=== PATIENT | male | born 1945 | race Caucasian/White ===

== ENCOUNTER 2016-08-31 11:58 | Inpatient (IN) | payer MEDICARE ==
--- NOTE | ~2016-08-31 | HP ---
History And Physical [place] [id number] [facility] [place]. [address] NAME: TRAM BLACKMON : 41 STATUS : ADM Kris PAT#: [id number] AGE: 70 ADM/REG DATE : 08/31/16 MR#: [id number] REPORT SERV DATE: 08/31/16 DICTATED BY: NADIA BARLOW DATE: 08/31/16 REPORT STATUS : Draft TRANSCRIBED BY: MODL DATE: 08/31/16 DATE OF ADMISSION: 08/31/2016 CHIEF COMPLAINT: Cough. HISTORY OF PRESENT ILLNESS: A pleasant hard of hearing white gentleman with no known history of CAD, who reports he may have had an episode of atrial fibrillation approximately three years ago, but seemingly not on any medication for same. The patient states that he went to his PCP today for a cough, he was found to be in atrial fibrillation. The patient states "my heart was running wild." The patient states that he felt fine. He encouraged his PCP to let him go home, but she was insistent that he come to the emergency room for further evaluation and treatment. The patient reports a "cold and cough" for a week. Denies fever or chills. The patient denies any chest pain, pressure, or tightness. No shortness of breath, nausea, diaphoresis, dizziness, or belching. The patient is unaware of any palpitations. States "I feel good." PAST MEDICAL HISTORY: 1. PAF with current atrial fibrillation with RVR, now rate controlled. 2. Hypertension, poorly managed. 3. Unknown cholesterol. 4. Denies diabetes. 5. Ongoing tobacco abuse. PAST SURGICAL HISTORY: 1. Lumbar surgery. 2. "Ulcer surgery.". 3. Tonsillectomy. SOCIAL HISTORY: He is single with no children. Previously employed at [employer], now [employer], does not have an exercise routine. Smokes one pack per day for 60+ years. Denies alcohol or illicits. FAMILY HISTORY: Mother of a heart attack at 72. Father of cirrhosis of the liver, nondrinker. Three brothers of heart attacks in their 70s. REVIEW OF SYSTEMS: A 14-point review of systems was performed, significant for HPI including does not check blood pressure at home. The patient reports possible previous atrial fibrillation event in 2013. Otherwise, complete review of systems obtained and negative. ALLERGIES: NO KNOWN DRUG ALLERGIES. HOME MEDICATIONS: Aspirin 81 mg daily, Catapres p.r.n., and Prinivil 20 mg daily. PHYSICAL EXAMINATION: BLOOD PRESSURE: Bilateral blood pressures on arrival, right 188/116, left 183/109; PULSE: 81 History And Physical [place] [address] [facility] [place]. [address] NAME: TRAM BLACKMON : 43 STATUS : ADM Kris PAT#: [id number] AGE: 70 ADM/REG DATE : 08/31/16 MR#: [id number] REPORT SERV DATE: 08/31/16 DICTATED BY: NADIA BARLOW DATE: 08/31/16 REPORT STATUS : Draft TRANSCRIBED BY: MODRosibel DATE: 08/31/16 and irregularly irregular, RESPIRATORY RATE: 16, TEMPERATURE: 98.4, O2 saturation 94% on room air. HEIGHT: 6 feet 6 inches. WEIGHT: 195 pounds. BMI of 22.5. GENERAL: Cooperative, in no apparent distress. Hard of hearing. HEENT: Pupils 2 mm, sclera nonicteric. Nares patent. Moist mucous membranes. No xanthelasma. NECK: Trachea midline, no thyromegaly. No JVD. No bruits. LYMPH: No cervical lymphadenopathy. No supraclavicular lymphadenopathy. RESPIRATORY: Unlabored respirations. Breath sounds clear bilaterally to posterior auscultation. No wheezes or rhonchi. CARDIOVASCULAR: Irregularly irregular rate with a variable S1, S2 and trace ankle edema. EXTREMITIES: Pulses 2+ bilaterally. ABDOMEN: Soft, nontender, nondistended, normal bowel sounds auscultated throughout. No organomegaly. SKIN: Warm, dry extremities. No pallor, or cyanosis. PSYCHIATRIC: Appropriate affect. Alert, oriented x3. LABORATORY DATA: Troponin less than 0.02, second pending. Potassium 4.1, BUN 15, creatinine 0.98, glucose 117, and magnesium 2.1. WBC 6.6, hemoglobin 15.2, hematocrit 44.6, and platelet count 154,000. EKG: Atrial fibrillation with controlled ventricular response (previously RVR). ASSESSMENT AND PLAN: 1. Atrial fibrillation with rapid ventricular response, now rate controlled, on Cardizem drip. N.p.o. for ERI cardioversion on 09/01/2016 at 0830 hours. The patient will be discharged home if successful. 2. NOAC. Eliquis 5 mg twice daily. Follow up with Cardiology. 3. Hypertension. Monitor blood pressure. P.r.n. antihypertensive as needed. Consider increasing CESAR if blood pressure remains poorly managed versus CCB or addition of beta- jose martin. 4. Rhonchi on initial exam, now clear. Check a BMP. The patient denies a febrile state. White count is within normal limits. 5. Trace ankle edema. We will provide diuretics if warranted. 6. Ongoing tobacco abuse. Counseled regarding cessation. Although, the patient does not seem motivated to do so. LETICIA/ULISES ART Pacheco, WEIGHT LOSS PHYSICIAN-BC / [id number] CC: ART Pacheco, WEIGHT LOSS PHYSICIAN-BC Paola Parks D.O.
--- NOTE | ~2016-08-31 | OP ---
Record Of Operation [facility] [address] [place]. [address] NAME: TRAM BLACKMON : 41 STATUS : ADM Kris PAT#: [id number] AGE: 70 ADM/REG DATE : 08/31/16 MR#: [id number] REPORT SERV DATE: 09/01/16 DICTATED BY: DATE: REPORT STATUS : Draft TRANSCRIBED BY: MODL DATE: 09/01/16 DATE OF PROCEDURE: 09/01/2016 CHIEF COMPLAINT/REASON FOR STUDY: Atrial fibrillation. Written informed consent obtained. Please see the chart for documentation. PROCEDURE: With the assistance of my Anesthesia colleagues, anesthesia was administered with IV propofol to achieve adequate conscious sedation. The transesophageal probe was readily inserted without complication. Salient 2D echocardiographic windows were obtained including color and Doppler assessment. 1. The left ventricular systolic function appeared normal with a visually estimated ejection fraction greater than 55%. The left ventricle appeared moderately hypertrophied. 2. The right ventricle appeared normal in size and systolic function. 3. The left atrium was dilated. There was no evidence of left atrial thrombus. 4. The right atrium appeared normal in size. 5. The left atrial appendage had no thrombus present at the time of ERI. Left atrial appendage Doppler velocities range between 22-28 cm/sec. 6. The mitral valve was normal with preserved leaflet motion. There was no evidence of mitral valve stenosis. There was mild mitral regurgitation seen with color Doppler assessment. 7. The tricuspid valve was normal with preserved leaflet motion. No tricuspid stenosis. There was trivial tricuspid regurgitation seen with color Doppler assessment. 8. Aortic valve was normal and trileaflet. There was no aortic stenosis or regurgitation seen with color Doppler assessment. 9. The pulmonary valve was well visualized. There was trivial pulmonary valvular regurgitation seen with color Doppler assessment. 10.The aorta appeared normal in caliber, however, there was moderate evidence of atherosclerotic plaque visualized in the thoracic aorta. 11.The pericardium appeared normal without pericardial effusion. 12.The interatrial septum appeared normal without evidence of patent foramen ovale or atrial septal defect. Following verification of no thrombus present, DC cardioversion was attempted in a synchronized manner, 200 joules were delivered, the patient reverted to sinus rhythm briefly and then return to atrial fibrillation with rapid ventricular response. Energy was increased to 300 joules and the procedure repeated without return to sinus rhythm. The energy was subsequently increased to 360 joules and DC cardioversion was performed. The patient briefly went into sinus rhythm and then returned to atrial fibrillation with RVR. IMPRESSION: 1. Moderate left ventricular hypertrophy. 2. Failure to maintain sinus rhythm post cardioversion. Record Of Operation [place] [address] [place]. [address] NAME: TRAM BLACKMON : 43 STATUS : ADM Kris PAT#: [id number] AGE: 70 ADM/REG DATE : 08/31/16 MR#: [id number] REPORT SERV DATE: 09/01/16 DICTATED BY: DATE: REPORT STATUS : Draft TRANSCRIBED BY: MODL DATE: 09/01/16 [facility]/MODL Elin Burgess M.D. / [id number] CC: Chary Arteaga, MSN, SPEECH/LANGUAGE THERAPIST-BC Paola Parks D.O.
[2016-08-31 10:50] LABS: BASOPHILS 0.5 %; BASOPHILS ABSOLUTE 0.03 10/3/uL (0.0-0.16); EOSINOPHILS 4.1 %; EOSINOPHILS ABSOLUTE 0.27 10/3/uL (0.0-0.53); ER CBC TAT 0 Hrs 05 Mins; HEMATOCRIT 44.6 % (40.0-51.0); HEMOGLOBIN 15.2 g/dL (13.6-17.8); IMMATURE GRANULOCYTES 0.3 %; IMMATURE GRANULOCYTES ABSOLUTE 0.02 10/3/uL (0.0-0.11); LYMPHOCYTES 22.1 %; LYMPHOCYTES ABSOLUTE 1.45 10/3/uL (0.67-4.30); MEAN CORPUS HGB CONC 34.1 g/dL (32.0-36.0); MEAN CORPUSCULAR HEMOGLOB 30.8 pg (26.0-34.0); MEAN CORPUSCULAR VOLUME 90.5 fL (80-100); MEAN PLATELET VOLUME 9.8 fL (9.2-13.0); MONOCYTES 7.8 %; MONOCYTES ABSOLUTE 0.51 10/3/uL (0.21-1.20); NEUTROPHILS 65.2 %; NEUTROPHILS ABSOLUTE 4.28 10/3/uL (2.02-8.40); PLATELET COUNT 154 10/3/uL (150-400); RBC DISTRIBUTION WIDTH 13.8 % (12.0-16.0); RED CELL COUNT 4.93 10/6/uL (4.7-6.1); WHITE BLOOD CELLS 6.6 10/3/uL (4.5-10.5)
[2016-08-31 10:52] LABS: MANUAL DIFF NO %
[2016-08-31 10:57] LABS: INTERNATIONAL NORMAL RATI 1.2 UNITS (-); PARTIAL THROMBO TIME 32.9 SEC (22.5-37.2); PROTIME (NOT ORD) 15.2 SEC (12.0-14.5)
[2016-08-31 11:05] LABS: BUN (BLOOD UREA NITROGEN) 15 MG/DL (6-23); CALCIUM, SERUM 8.8 MG/DL (8.5-10.4); CHEST PAIN PROFILE TAT 0 Hrs 20 Mins; CHLORIDE, SERUM 108 MMOL/L (96-112); CO2 (CARBON DIOXIDE) 30 MMOL/L (24-34); CREATININE 0.98 MG/DL (0.70-1.30); GFR AFRICAN AMERICAN 89 ML/MIN (>=60); GFR NON AFRICAN AMERICAN 77 ML/MIN (>=60); GLUCOSE, SERUM 117 MG/DL (60-99); POTASSIUM, SERUM 4.1 MMOL/L (3.5-5.3); SODIUM, SERUM 140 MMOL/L (135-148); TROPONIN I <0.02 NG/ML (<0.05)
[~2016-08-31 11:58] MED LIST: CAT2 PO; HALF81 PO; PRIN20 PO
[2016-08-31 17:01] LABS: ALBUMIN 3.9 G/DL (3.5-5.0); ALKALINE PHOSPHATASE 117 U/L (45-117); DIRECT BILIRUBIN 0.2 MG/DL (0.0-0.4); FREE T4 1.12 NG/DL (0.76-1.46); INDIRECT BILIRUBIN(NOT ORDER) 0.7 MG/DL (0.1-0.9); SGOT(AST) 21 U/L (5-40); SGPT(ALT) 26 U/L (5-65); TOTAL BILIRUBIN 0.9 MG/DL (0-1.2); TOTAL PROTEIN 7.4 G/DL (6.0-8.5)
[2016-08-31 17:40] LABS: ALBUMIN 3.7 G/DL (3.5-5.0); DIRECT BILIRUBIN 0.2 MG/DL (0.0-0.4); FREE T4 1.13 NG/DL (0.76-1.46); INDIRECT BILIRUBIN(NOT ORDER) 0.9 MG/DL (0.1-0.9); TOTAL BILIRUBIN 1.1 MG/DL (0-1.2); TOTAL PROTEIN 6.9 G/DL (6.0-8.5); TROPONIN I 0.02 NG/ML (<0.05)
[2016-08-31 17:41] LABS: ULTRASENSITIVE TSH 0.865 MCIU/ML (0.358-3.740)
[2016-09-01 04:07] LABS: BASOPHILS 0.5 %; BASOPHILS ABSOLUTE 0.03 10/3/uL (0.0-0.16); EOSINOPHILS 4.7 %; EOSINOPHILS ABSOLUTE 0.29 10/3/uL (0.0-0.53); HEMATOCRIT 43.8 % (40.0-51.0); IMMATURE GRANULOCYTES 0.2 %; IMMATURE GRANULOCYTES ABSOLUTE 0.01 10/3/uL (0.0-0.11); LYMPHOCYTES 25.1 %; LYMPHOCYTES ABSOLUTE 1.56 10/3/uL (0.67-4.30); MEAN CORPUS HGB CONC 34.2 g/dL (32.0-36.0); MEAN CORPUSCULAR HEMOGLOB 30.7 pg (26.0-34.0); MEAN CORPUSCULAR VOLUME 89.6 fL (80-100); MONOCYTES 11.9 %; MONOCYTES ABSOLUTE 0.74 10/3/uL (0.21-1.20); NEUTROPHILS 57.6 %; NEUTROPHILS ABSOLUTE 3.59 10/3/uL (2.02-8.40); PLATELET COUNT 163 10/3/uL (150-400); RBC DISTRIBUTION WIDTH 13.4 % (12.0-16.0); RED CELL COUNT 4.89 10/6/uL (4.7-6.1); WHITE BLOOD CELLS 6.2 10/3/uL (4.5-10.5)
[2016-09-01 04:08] LABS: MANUAL DIFF NO %
[2016-09-01 04:28] LABS: BUN (BLOOD UREA NITROGEN) 18 MG/DL (6-23); CALCIUM, SERUM 8.9 MG/DL (8.5-10.4); CHLORIDE, SERUM 106 MMOL/L (96-112); CO2 (CARBON DIOXIDE) 27 MMOL/L (24-34); CREATININE 0.97 MG/DL (0.70-1.30); GFR AFRICAN AMERICAN 90 ML/MIN (>=60); GFR NON AFRICAN AMERICAN 78 ML/MIN (>=60); POTASSIUM, SERUM 3.7 MMOL/L (3.5-5.3); SODIUM, SERUM 141 MMOL/L (135-148)
[2016-09-01 04:29] LABS: GLUCOSE, SERUM 145 MG/DL (60-99)
[2016-09-02 04:39] LABS: CALCIUM, SERUM 8.9 MG/DL (8.5-10.4); CHLORIDE, SERUM 110 MMOL/L (96-112); CO2 (CARBON DIOXIDE) 25 MMOL/L (24-34); CREATININE 1.08 MG/DL (0.70-1.30); GFR AFRICAN AMERICAN 79 ML/MIN (>=60); GFR NON AFRICAN AMERICAN 68 ML/MIN (>=60); GLUCOSE, SERUM 124 MG/DL (60-99); SODIUM, SERUM 143 MMOL/L (135-148)
[2016-09-02 04:40] LABS: BUN (BLOOD UREA NITROGEN) 25 MG/DL (6-23)
[2016-09-02 04:41] LABS: INTERNATIONAL NORMAL RATI 1.3 UNITS (-); PROTIME (NOT ORD) 15.9 SEC (12.0-14.5)
[2016-09-02] MEDS ORDERED: CARDCD180 PO (11:23)
[2016-09-02] MEDS ORDERED: LOP25 PO (11:24)
[2016-09-02] MEDS ORDERED: LISINOPRIL40 MG PO (11:25)
[2016-09-02] MEDS ORDERED: JANTOVEN1 MG PO (11:26)
[2016-09-02] MEDS ORDERED: LOVENOX80 SC (11:28)
[2016-11-29] MEDS ORDERED: RYTHMOL225 MG PO (13:31)
[2016-12-10] MEDS ORDERED: LIVALO2 MG PO (14:48)
== END 2016-09-02 12:47 | disposition home or self-care (01) | DRG 310 ==
LOC: ER 11:58 → CDU1 12:18 → CDU2 12:35
PROVIDERS: Clinical Nurse Specialist; Emergency Medicine
PROC: B246ZZ4 Ultrasonography of Right and Left Heart, Transesophageal (ICD-10-PCS; principal; 2016-09-01)
PROC: 5A2204Z Restoration of Cardiac Rhythm, Single (ICD-10-PCS; 2016-09-01)
DX: I48.0 Paroxysmal atrial fibrillation (principal); I10 Essential (primary) hypertension; F17.210 Nicotine dependence, cigarettes, uncomplicated; Z79.82 Long term (current) use of aspirin
CPT/HCPCS: 71010; 80048; 80076; 83735; 83880; 84439; 84443; 84484; 85025; 85610; 85730; 92960; 93005; 93312; 93320; 93325; 96365; 99285; A9270-GY; J0360; J1940

== ENCOUNTER 2016-11-30 02:30 | Emergency (ER) | payer MEDICARE ==
[~2016-11-30 02:30] MED LIST changes: +CARDCD180 PO; +JANTOVEN1 MG PO; +LISINOPRIL40 MG PO; +LOP25 PO; +LOVENOX80 SC; +RYTHMOL225 MG PO
[2016-11-30 03:07] LABS: BASOPHILS 0.5 %; BASOPHILS ABSOLUTE 0.04 10/3/uL (0.0-0.16); EOSINOPHILS 4.5 %; EOSINOPHILS ABSOLUTE 0.35 10/3/uL (0.0-0.53); HEMATOCRIT 42.3 % (40.0-51.0); HEMOGLOBIN 14.7 g/dL (13.6-17.8); IMMATURE GRANULOCYTES 0.4 %; IMMATURE GRANULOCYTES ABSOLUTE 0.03 10/3/uL (0.0-0.11); LYMPHOCYTES 20.6 %; MEAN CORPUS HGB CONC 34.8 g/dL (32.0-36.0); MEAN CORPUSCULAR HEMOGLOB 31.1 pg (26.0-34.0); MEAN CORPUSCULAR VOLUME 89.4 fL (80-100); MEAN PLATELET VOLUME 9.7 fL (9.2-13.0); MONOCYTES 7.6 %; MONOCYTES ABSOLUTE 0.59 10/3/uL (0.21-1.20); NEUTROPHILS 66.4 %; NEUTROPHILS ABSOLUTE 5.15 10/3/uL (2.02-8.40); PLATELET COUNT 148 10/3/uL (150-400); RBC DISTRIBUTION WIDTH 14.7 % (12.0-16.0); RED CELL COUNT 4.73 10/6/uL (4.7-6.1); WHITE BLOOD CELLS 7.8 10/3/uL (4.5-10.5)
[2016-11-30 03:10] LABS: ER CBC TAT 0 Hrs 12 MinsNP; MANUAL DIFF NO %
[2016-11-30 03:16] LABS: INTERNATIONAL NORMAL RATI 2.2 UNITS (-); PARTIAL THROMBO TIME 32.8 SEC (22.5-37.2)
[2016-11-30 03:25] LABS: BUN (BLOOD UREA NITROGEN) 18 MG/DL (6-23); CALCIUM, SERUM 8.7 MG/DL (8.5-10.4); CHEST PAIN PROFILE TAT 0 Hrs 30 Mins; CHLORIDE, SERUM 107 MMOL/L (96-112); CO2 (CARBON DIOXIDE) 28 MMOL/L (24-34); CREATININE 1.17 MG/DL (0.70-1.30); GFR AFRICAN AMERICAN 72 ML/MIN (>=60); GFR NON AFRICAN AMERICAN 62 ML/MIN (>=60); GLUCOSE, SERUM 173 MG/DL (60-99); SODIUM, SERUM 142 MMOL/L (135-148); TROPONIN I <0.02 NG/ML (<0.05)
[2016-12-10] MEDS ORDERED: LIVALO2 MG PO (14:48)
== END 2016-11-30 06:45 | disposition home or self-care (01) ==
LOC: ER 02:30 → EDBD 04:20 → ER 04:20
PROVIDERS: Hospitalist
DX: R07.89 Other chest pain (principal); F17.200 Nicotine dependence, unspecified, uncomplicated; I48.91 Unspecified atrial fibrillation; I44.0 Atrioventricular block, first degree; R94.31 Abnormal electrocardiogram [ECG] [EKG]; Z79.01 Long term (current) use of anticoagulants; Z79.899 Other long term (current) drug therapy
CPT/HCPCS: 71020; 71275; 80048; 82962; 83735; 84484; 85025; 85610; 85730; 92960; 93005; 99285; A9270-GY; J0360; Q9967

== ENCOUNTER 2016-12-14 10:59 | Inpatient (IN) | payer MEDICARE ==
[~2016-12-14] VITALS: Ht 193 cm; Wt 94.9 kg
--- NOTE | ~2016-12-14 | CN ---
Consultation Report [facility] [address] [place]. [address] NAME: TRAM BLACKMON : 41 STATUS : REG REF PAT#: [id number] AGE: 71 ADM/REG DATE : 12/14/16 MR#: [id number] REPORT SERV DATE: 12/15/16 DICTATED BY: SEAN GONZALEZ DATE: 12/14/16 REPORT STATUS : Draft TRANSCRIBED BY: MODL DATE: 12/14/16 DATE OF CONSULTATION: 12/14/2016 PERTINENT HISTORY: The patient is a 71-year-old gentleman, admitted to the hospital by Dr. Mccormick for elective cardiac catheterization. The patient has been evaluated by Dr. Mccormick with known history of chronic atrial fibrillation. He had issues of chest pain, therefore he was brought in for cardiac catheterization. Cardiac catheterization demonstrated a left main coronary artery stenosis with proximal LAD artery stenoses and proximal circumflex artery stenosis, also multiple lesions in the right coronary artery which were critical affecting the posterior descending artery as well as the posterolateral branch. The right coronary artery and left ventricular function were preserved. The patient has chronic atrial fibrillation. He had no evidence of mitral insufficiency by left ventriculogram. PAST MEDICAL HISTORY: Significant for no previous open cardiac or thoracic surgery. Had a previous laparotomy for peptic ulcer disease surgery approximately 40 years prior. Also had an operation on his lumbar spine 40 years prior which involved a diskectomy and laminectomy. He also had history of tonsillectomy. He had no known history of stroke or heart attack. He does have history of hypertension and chronic atrial fibrillation, on anticoagulation of Coumadin. He had no history of diabetes mellitus. Did have history of COPD. SOCIAL HISTORY: Positive tobacco and ethanol use. FAMILY HISTORY: Positive coronary artery disease. REVIEW OF SYSTEMS: Significant for the recent onset of chest pain. Mild shortness of breath upon exertion. He had no history of neurologic symptoms or stroke and no history of claudication of the lower extremities. Remains very active. PHYSICAL EXAMINATION: VITAL SIGNS: He is afebrile. Blood pressure 140/60, his heart rate was 70 and irregular, respirations of 15. GENERAL: He is an alert and oriented x3. Neurologically intact. Constitutionally, he is well developed, well nourished. RESPIRATORY: Showed chest have prolonged expiratory phase. No obvious wheezes. CARDIAC: Showed irregular rate and rhythm. No obvious murmurs. ABDOMEN: Soft and nontender. No masses. GI examination, he has a well-healed upper midline laparotomy incision. MUSCULOSKELETAL: Showed good musculature with extremities intact. EXTREMITIES: Showed no clubbing, cyanosis, or edema. SKIN: Showed no obvious rash. NEUROLOGIC: His psych exam is normal. Neurologically, he was intact. STUDIES: His cardiac catheterization on my examination showed left main coronary stenosis Consultation Report [address] [place]. [address] NAME: TRAM BLACKMON : 43 STATUS : REG REF PAT#: [id number] AGE: 71 ADM/REG DATE : 12/14/16 MR#: [id number] REPORT SERV DATE: 12/15/16 DICTATED BY: SEAN GONZALEZ DATE: 12/14/16 REPORT STATUS : Draft TRANSCRIBED BY: ULISES DATE: 12/14/16 approximately 60% with stenoses involving the proximal LAD artery and circumflex artery. He has also had multiple greater than 90% stenoses in the right coronary artery affecting the posterior descending artery as well as posterolateral branch. The right coronary artery and left ventricular function were preserved by left ventriculogram. His laboratory examination is pending. The patient has been off Coumadin for three days. Therefore, the assumption is his coagulations will be normal. He is on no antiplatelet agents. IMPRESSION: At this time is severe three-vessel coronary artery disease. Left main coronary artery stenosis, chronic atrial fibrillation and probable chronic obstructive pulmonary disease. The plan is to check carotid ultrasound to rule out any kind of carotid arterial disease and then proceed with urgent coronary bypass grafting and also with ligation of atrial appendage due to the chronic atrial fibrillation. Due to chronic atrial fibrillation, no major procedure will be attempted. ANA/ULISES Sean Gonzalez M.D. / [id number] CC: Jaswinder Winkler D.O.
--- NOTE | ~2016-12-14 | OP ---
Record Of Operation [facility] [address] [place]. [address] NAME: TRAM BLACKMON : 41 STATUS : REG REF PAT#: [id number] AGE: 71 ADM/REG DATE : 12/14/16 MR#: [id number] REPORT SERV DATE: 12/15/16 DICTATED BY: LUCHO MCCORMICK DATE: 12/14/16 REPORT STATUS : Draft TRANSCRIBED BY: MODL DATE: 12/14/16 DATE OF PROCEDURE: 12/14/2016 PROCEDURES: Left heart catheterization, left ventriculography, and coronary angiography. INDICATIONS: Chronic atrial fibrillation, high-risk myocardial perfusion scan, and class 2 angina. PROCEDURE NOTE: Informed consent obtained. The patient was brought to catheterization lab in a fasting state with renal prophylaxis protocol initiated. Routine sterile prep and drape performed. Monitored sedation administered. 2% Xylocaine with epinephrine infiltrated to the right groin. A 6-Venezuelan sheath to right femoral artery following anterior wall puncture. A 6-Venezuelan angled pigtail catheter across the aortic valve without difficulty. Left ventricular pressures recorded. Left ventriculography in FLOYD projection. Pullback to ascending aorta under pressure recording and catheter removed. The 6-Venezuelan JL4 and JR4 diagnostic catheters were used to cannulate coronary artery ostia with angiography of each vessel performed. All catheters were removed. A right common femoral arterial sheath side port angiography performed followed by sheath removal and ProGlide closure of common femoral puncture site. The patient was taken to recovery area in satisfactory condition without immediate complication anticipating administration of Ancef. TOTAL CONTRAST: 80 mL Isovue-370. TOTAL X-RAY DOSE: 372 mGy. MONITORED SEDATION TIME: 21 minutes. ESTIMATED BLOOD LOSS: Less than 10 mL. FINDINGS: HEMODYNAMICS: Central aortic pressure 150/85 mmHg, mean 120 mmHg. Left ventricular pressure 150/16 mmHg. LEFT VENTRICULOGRAPHY: In FLOYD left ventriculography, all segments moved normally. Ejection fraction is estimated to be no lower than 55%. No mitral regurgitation identified. CORONARIES: 1. Left main coronary artery: Ostial calcification and 70% stenosis. No pressure dampening upon engagement with a tapered-tip 6-Venezuelan diagnostic catheter was observed. Distal left main tapering of 30% identified. 2. LAD: Medium-caliber vessel reaching the apex of the heart. Several small diagonal branches are seen. Diffuse luminal irregularity of up to 50% is seen in the proximal and mid LAD. Diagonal branches are relatively free of disease. 3. Circumflex: Medium-caliber, angiographically nondominant vessel giving rise to two obtuse marginal branches, the first much larger than the second. AV groove circumflex Record Of Operation [facility] [address] [place]. [address] NAME: TRAM BLACKMON : 43 STATUS : REG REF PAT#: [id number] AGE: 71 ADM/REG DATE : 12/14/16 MR#: [id number] REPORT SERV DATE: 12/15/16 DICTATED BY: LUCHO MCCORMICK DATE: 12/14/16 REPORT STATUS : Draft TRANSCRIBED BY: MODL DATE: 12/14/16 narrowing of approximately 50% is seen involving the ostium of the first obtuse marginal vessel. Mid AV groove circumflex narrowing of 30% to 50% is seen jeopardizing flow into the smaller second obtuse marginal vessel. 4. Right coronary artery: Large-caliber, angiographically dominant vessel with proximal ulcer and mid and distal stenoses of 70%. This vessel terminates as small posterior descending artery and large posterolateral artery which exhibits ostial stenosis of 70%. FINAL IMPRESSION: 1. Mild systolic hypertension. 2. Low left ventricular end-diastolic pressure. 3. Normal left ventricular ejection fraction without segmental wall motion abnormalities. 4. No mitral regurgitation. 5. Ostial left main coronary artery significant stenosis. 6. Bifurcation, left main coronary artery stenosis. 7. 30% to 50% stenoses in proximal and mid LAD. 8. 50% stenosis in proximal AV groove circumflex artery involving ostium of first obtuse marginal vessel and mid AV groove circumflex artery. 9. Significant sequential stenoses in proximal and distal right coronary artery and proximal right posterolateral artery. /MODL Lucho cMcormick M.D. / [id number] CC: Jaswinder Winkler D.O. Stephen Martin, M.D.
--- NOTE | ~2016-12-14 | OP ---
Record Of Operation [facility] [address] [place]. [address] NAME: TRAM BLACKMON : 41 STATUS : ADM IN PAT#: [id number] AGE: 71 ADM/REG DATE : 12/14/16 MR#: [id number] REPORT SERV DATE: 12/22/16 DICTATED BY: SEAN GONZALEZ DATE: 12/21/16 REPORT STATUS : Draft TRANSCRIBED BY: MODL DATE: 12/21/16 DATE OF PROCEDURE: 12/21/2016 PREOPERATIVE DIAGNOSIS: Status post coronary bypass grafting with respiratory insufficiency and right-sided pleural effusion with left-sided air leak. POSTOPERATIVE DIAGNOSIS: Status post coronary bypass grafting with respiratory insufficiency and right-sided pleural effusion with left-sided air leak. OPERATIVE PROCEDURE: Bilateral chest tube placement, both right and left, 32-Monegasque chest tubes. ANESTHESIA: 1% local anesthesia. DRAINS PLACED: 32-Monegasque chest tube in the right pleural space, and 32-Monegasque chest tube in the left pleural space. PERTINENT HISTORY: The patient is a 71-year-old gentleman, approximately 5 days status post urgent coronary artery bypass grafting who still had mediastinal chest tubes in place. The patient did have a small air leak but no pneumothorax noted. He is having respiratory insufficiency. He is still on the ventilator but hypoxic. The patient had a chest x-ray suggesting possible right-sided pleural effusion. The patient was on 100% oxygen via ventilator. OPERATIVE FINDINGS: The patient had approximately 150 cc left-sided pleural effusion. OPERATIVE PROCEDURE: The patient was in the ICU on the ventilator, in supine position, had the right and left chest prepped and draped in the usual sterile fashion. 1% lidocaine local anesthesia was infiltrated in the anterior axillary line approximately the seventh intercostal space on the right. A generous amount of local was used, approximately 20 mL. Incision was made through the subcutaneous space. Blunt dissection continued to the chest wall and the intercostal space was penetrated above the seventh rib and directed superiorly and posteriorly. The chest tube 30-Monegasque caliber was placed through that opening into the pleural space and directed superiorly and inferiorly. This chest tube was sutured in place with 2-0 silk suture and placed to Pleur-evac suction. A 1% lidocaine local anesthesia was infiltrated in the left side of the anterior axillary line approximately seventh intercostal space. Incision was then made through the subcutaneous tissue. Blunt dissection continued to the seventh rib and then the intercostal space entered over the seventh rib. This was directed superiorly and posteriorly. A 32-Monegasque chest tube was placed through that opening and directed superiorly and inferiorly into the left pleural space. The chest tube was sutured in place with a 2-0 silk suture and placed to Pleur-evac suction. Chest x-ray was obtained, both tubes were in excellent position and directed toward the apex posteriorly. Both chest tubes were placed to suction. Intermittent air leak was noted in the left-sided tube. No air leak was noted in the right. The previously placed intraoperative mediastinal tubes were then removed. Dressings were placed. The patient Record Of [address] [address] NAME: TRAM BLACKMON : 41 STATUS : ADM IN [facility]#: [id number] AGE: 71 ADM/REG DATE : 12/14/16 MR#: [id number] REPORT SERV DATE: 12/22/16 DICTATED BY: SEAN GONZALEZ DATE: 12/21/16 REPORT STATUS : Draft TRANSCRIBED BY: ULISES DATE: 12/21/16 tolerated the procedure well and remained in the ICU on the ventilator. ANA/ULISES Sean Gonzalez M.D. / [id number] CC: Jaswinder Winkler D.O.
--- NOTE | ~2016-12-14 | OP ---
Record Of Operation [facility] [address] [place]. [address] NAME: TRAM BLACKMON : 43 STATUS : ADM IN PAT#: [id number] AGE: 71 ADM/REG DATE : 12/14/16 MR#: [id number] REPORT SERV DATE: 12/15/16 DICTATED BY: SEAN GONZALEZ DATE: 12/15/16 REPORT STATUS : Draft TRANSCRIBED BY: MODL DATE: 12/15/16 DATE OF PROCEDURE: 12/15/2016 PREOPERATIVE DIAGNOSIS: Left main coronary artery stenosis with severe three-vessel coronary disease and chronic atrial fibrillation. POSTOPERATIVE DIAGNOSIS: Left main coronary artery stenosis with severe three-vessel coronary disease and chronic atrial fibrillation. OPERATIVE PROCEDURE: Urgent coronary artery bypass graft x4 with endoscopic vein harvest utilizing the left internal mammary artery to the LAD artery, reverse saphenous vein graft from the aorta to the obtuse marginal artery, and from the aorta in a sequential fashion to the posterior descending artery, and posterior lateral branch to the right coronary artery. Also ligation of left atrial appendage and transesophageal echocardiography. ANESTHESIA: General endotracheal anesthesia, AA. Chest tubes placed were two. Pacing wires were two on the right ventricle. PERTINENT HISTORY: The patient is a 71-year-old gentleman referred by Dr. Mccormick with chronic atrial fibrillation and left main coronary stenosis with severe three-vessel coronary disease. OPERATIVE FINDINGS: Transesophageal echocardiogram demonstrated no significant mitral valvular disease either stenosis or insufficiency. The patient had only mild central aortic insufficiency. Otherwise, aortic valve looked normal with no evidence of stenosis. The patient was in chronic atrial fibrillation, and there was no thrombus noted in the left atrial appendage. The right and left ventricles are of normal size. The right and left atria are mildly enlarged. The coronary artery targets were adequate, and conduit was adequate. OPERATIVE PROCEDURE: The patient was taken to the operating room, placed in supine position. Anesthesia was obtained. The patient was prepped and draped in the usual sterile fashion. Transesophageal echocardiogram was performed demonstrating the findings listed above in the operative findings. The greater saphenous vein was harvested with the VasoView technique, endovascular instrumentation by 2 cm incision at the level of the knee. A midline sternotomy incision was made and sternum was divided. Left internal mammary artery was harvested and found to have good flow. Heparin was then infused, and the patient was started on cardiopulmonary bypass. Cross-clamp was applied. Cardioplegia was infused in antegrade and retrograde fashion over a period of 15 minutes. The left atrial appendage was oversewn epicardially with running 4-0 Prolene suture in a double layer vertical mattress fashion. The posterior lateral branch of right coronary artery was bypassed with reversed saphenous vein graft in end-to-side fashion. The vein graft was used to bypass the posterior descending artery in a [id number] fashion. The obtuse marginal artery was bypassed with reversed saphenous vein graft in end-to-side fashion. The left internal mammary artery was used to bypass the LAD artery in end-to-side fashion. Cross-clamp was Record Of Operation [address] [address] NAME: TRAM BLACKMON : 43 STATUS : ADM IN [facility]#: [id number] AGE: 71 ADM/REG DATE : 12/14/16 MR#: [id number] REPORT SERV DATE: 12/15/16 DICTATED BY: SEAN GONZALEZ DATE: 12/15/16 REPORT STATUS : Draft TRANSCRIBED BY: ULISES DATE: 12/15/16 then placed. The two proximal anastomoses were sewn on the ascending aorta. Cross-clamp was removed. Good hemostasis was noted. Two pacing wires were placed on right ventricle. Two chest tubes were placed. The patient was warmed to 36 centigrade, maintained a bradycardic rhythm and chronic atrial fibrillation. He underwent ventricular pacing at 80, he underwent inotropic support and dobutamine at 5. The patient was weaned from cardiopulmonary bypass. Protamine sulfate was infused. Hemostasis was adequate. Sternum was closed with 4 sternal cables. Soft tissue was closed in the usual manner as stated above. The patient tolerated the procedure well and was taken back to the ICU in stable condition. ANA/ULISES Sean Gonzalez M.D. / [id number] CC: Jaswinder Winkler D.O.
--- NOTE | ~2016-12-14 | CN ---
Consultation Report [facility] [address]. [address] NAME: TRAM BLACKMON : 43 STATUS : ADM IN PAT#: [id number] AGE: 71 ADM/REG DATE : 12/14/16 MR#: [id number] REPORT SERV DATE: 12/16/16 DICTATED BY: JUNAITA VASQUEZ DATE: 12/16/16 REPORT STATUS : Draft TRANSCRIBED BY: MODL DATE: 12/16/16 CONSULTATION DATE OF CONSULTATION: HISTORY OF PRESENT ILLNESS: This is a 71-year-old white male, admitted on 12/14/2016, and underwent coronary artery bypass grafting surgery of four vessels. The patient is followed by Cardiology with Dr. Pérez Mccormick, who performed a left heart catheterization showing multivessel disease. The patient also has history of atrial fibrillation as well, and had as recent cardioversion on 12/08/2016. Surgery went well and he remained intubated postoperatively. He is currently on dobutamine, Precedex, insulin, milrinone, and Cardene. Currently, he is on a spontaneous breathing trial with minimal sedation and awakens very easily. A chest x-ray this morning shows bilateral venous congestion with small effusions. There was some concern that he has clinical COPD as he is a long-term smoker. It does not appear based on his home med list that he is on any home inhalers. I am unable to take a full history since he is intubated. He is currently on DuoNeb aerosols around the clock. He did have a recent CTA of the chest toward the end of November of this year that showed no evidence of pulmonary embolism, and based on my review, the images really shows no evidence of significant bullous emphysema. He may have very minor trivial emphysema seen on CAT scan, mostly in the upper lobes. I do not have any old pulmonary function studies to review. REVIEW OF SYSTEMS: Unable to obtain. PAST MEDICAL HISTORY: Atrial fibrillation, coronary artery disease, and probable COPD. PAST SURGICAL HISTORY: As above as well as previous laparotomy for peptic ulcer disease around 40 years ago, lumbar spine surgery, and tonsils. SOCIAL HISTORY: Positive tobacco and alcohol use. FAMILY HISTORY: Coronary artery disease. ALLERGIES: NONE. HOME MEDICATIONS: Reviewed. PHYSICAL EXAMINATION: VITAL SIGNS: Per nursing flow sheet. GENERAL: In no acute distress. NEUROLOGIC: Alert, on Precedex, follows commands, moves all extremities. HEENT: Normocephalic and atraumatic. Pupils are equal, round, and reactive to light. NECK: Trachea midline. Consultation Report [address] [place]. [address] NAME: TRAM BLACKMON : 43 STATUS : ADM IN PAT#: [id number] AGE: 71 ADM/REG DATE : 12/14/16 MR#: [id number] REPORT SERV DATE: 12/16/16 DICTATED BY: JUANITA VASQUEZ DATE: 12/16/16 REPORT STATUS : Draft TRANSCRIBED BY: ULISES DATE: 12/16/16 HEART: Regular rate and rhythm. No murmurs. CHEST: Post sternotomy dressing. LUNGS: Clear anteriorly. Currently on breathing trial with settings reviewed. GI: Soft, nontender, and nondistended. EXTREMITIES: Right leg wrap from vein graft. No edema in the left leg. : Flynn catheter in place making urine. Other devices; has chest tubes in place. LABORATORY DATA: Labs and radiology studies were reviewed. ASSESSMENT/PLAN: 1. Postoperative respiratory failure. 2. Pulmonary edema. 3. Probable chronic obstructive pulmonary disease/emphysema. 4. Coronary artery disease status post CABG x4. We will continue to provide post operative supportive care. Currently, on a breathing trial. Giving him Lasix and stopping any extraneous maintenance IV fluids. Also given a little bit of albumin as well. We will work towards weaning him off the ventilator over today or the next day or so. Continue with aerosol treatments for now. We will likely need outpatient PFTs and clinical monitoring and as well as counseling for smoking cessation. CEP/MODL Juanita Vasquez DO / [id number] CC: Jaswinder Winkler D.O.
--- NOTE | ~2016-12-14 | TEE ---
Transesophageal Echocardiogram [facility] [address] [place]. [address] NAME: TRAM BLACKMON : 43 STATUS : ADM IN [facility]#: [id number] AGE: 71 ADM/REG DATE : 12/14/16 MR#: [id number] REPORT SERV DATE: 12/22/16 DICTATED BY: DATE: REPORT STATUS : Draft TRANSCRIBED BY: MODL DATE: 12/22/16 CHIEF COMPLAINT/REASON FOR STUDY: Respiratory failure. Written informed consent obtained. Please see the chart for documentation. The patient was already intubated and sedated for the procedure. The transesophageal probe was placed with two attempts without complication. Salient 2D spectral and color Doppler imaging was obtained. Following the procedure, the transesophageal probe was withdrawn. There were no complications. SALIENT ECHOCARDIOGRAPHIC FINDINGS: 1. Hyperdynamic left ventricular systolic function with a visually estimated ejection fraction greater than 70%. There is at least moderate to severe left ventricular hypertrophy present. 2. The right ventricular chamber size and systolic functions are normal. 3. The right atrium is dilated. There was no evidence of right atrial thrombus. 4. The left atrium is dilated. There was no clear evidence of left atrial thrombus. 5. The mitral valve was structurally normal. There was mild color flow and Doppler evidence for mitral valvular regurgitation. 6. The aortic valve was trileaflet. It opened normally with thin pliable leaflets. There was mild aortic valvular insufficiency via color Doppler imaging. 7. The pulmonary valve was well-visualized. There was mild pulmonary valvular regurgitation. There was no evidence of pulmonary valvular stenosis. 8. The tricuspid valve was visualized. There was no evidence of tricuspid valve stenosis. There was mild color flow evidence of tricuspid valvular regurgitation. 9. Left-sided pleural effusion was noted. 10.The thoracic aorta was interrogated. There was no evidence of aortic dissection present. IMPRESSION: 1. Left ventricular hypertrophy, moderate to severe with hyperdynamic left ventricular systolic function with a visually estimated ejection fraction of greater than 70%. 2. Biatrial dilatation. 3. Panvalvular regurgitation (mild). 4. The results of this study were discussed with the ordering physician, Critical Care Medicine, and Cardiothoracic Surgery. JOSE/ULISES Elin Burgess M.D. / [id number] CC: Transesophageal Echocardiogram [address] [place]. [address] NAME: TRAM BLACKMON : 43 STATUS : ADM IN PAT#: [id number] AGE: 71 ADM/REG DATE : 12/14/16 MR#: [id number] REPORT SERV DATE: 12/22/16 DICTATED BY: DATE: REPORT STATUS : Draft TRANSCRIBED BY: MODL DATE: 12/22/16 Jaswinder Winkler D.O.
--- NOTE | ~2016-12-14 | CN ---
Consultation Report [facility] [address] [place]. [address] NAME: TRAM BLACKMON : 43 STATUS : ADM IN PAT#: [id number] AGE: 71 ADM/REG DATE : 12/14/16 MR#: [id number] REPORT SERV DATE: 12/23/16 DICTATED BY: GETACHEW KENNEDY DATE: 12/23/16 REPORT STATUS : Draft TRANSCRIBED BY: MODL DATE: 12/23/16 DATE OF CONSULTATION: 12/23/2016 DICTATED BY: Iesha Fernandez, nurse-practitioner. REASON FOR CONSULTATION: Evaluation for ileus status post CABG. HISTORY OF PRESENT ILLNESS: This 71-year-old white male is status post emergent CABG x4 on 12/15/2016. On 12/17/2016, he had to be reintubated. He had a right effusion and left air leak with bilateral chest tube placement on 12/21/2016. Transesophageal echocardiogram on 12/22/2016 revealed LVH with EF of 70% and bilateral dilatation with phelps valvular regurgitation. After review of the chart, plans were noted for potential withdrawal of support in the next 24 hours. The patient has been on Senokot syrup twice daily, Dulcolax suppository daily, MiraLAX one packet daily, without bowel function. Flat and upright abdominal x-ray today reveals NG in gastric lumen, atelectasis in the left lung base, and an unremarkable gas pattern. There is no evidence of obstruction. The patient's nurse reports he was on tube feedings, but these were discontinued this morning after the patient had vomiting. He had a residual of 345 mL since his tube feedings have been held. PAST MEDICAL HISTORY: 1. Atrial fibrillation. 2. Coronary artery disease. 3. Hypertension. 4. Tobacco use. 5. Bleeding peptic ulcer disease remotely. 6. COPD. PAST SURGICAL HISTORY: Status post laparoscopy for PUD approximately 40 years ago at [facility], lumbar spine surgery, tonsillectomy, right third finger surgery secondary to saw accident. ALLERGIES: NO KNOWN DRUG ALLERGIES. MEDICATIONS: Home medications include aspirin 325 mg daily, Coreg, Catapres, Cardizem, Lopressor, warfarin. Hospital medications include Maxipime, Lanoxin, NovoLog, Protonix 40 mg IV daily, MiraLAX one packet daily, senna syrup 10 mL p.o. b.i.d., Dulcolax suppository daily, Levemir, fentanyl TOBACCO CURER, and for additional medications see MAR. SOCIAL HISTORY: The patient is retired from [employer]. He lives in [place], [place] with his sister. He smokes one pack per day. Positive alcohol use. No drug use. FAMILY HISTORY: No GI malignancies. Mother DE at age 72, father cirrhosis of the liver, Consultation Report [address] [place]. [address] NAME: TRAM BLACKMON : 43 STATUS : ADM IN PAT#: [id number] AGE: 71 ADM/REG DATE : 12/14/16 MR#: [id number] REPORT SERV DATE: 12/23/16 DICTATED BY: GETACHEW KENNEDY DATE: 12/23/16 REPORT STATUS : Draft TRANSCRIBED BY: ULISES DATE: 12/23/16 three brothers with DE in their 70s. REVIEW OF SYSTEMS: Otherwise, unremarkable for constitutional, endocrine, neurologic, psychiatric, ocular, ENT, pulmonary, cardiovascular, GI, , or rheumatologic symptoms except for as noted above. PHYSICAL EXAMINATION: VITAL SIGNS: Temp 99.8 with temperature max 101.2, pulse 22, respirations 20, BP 91/51, and O2 saturation 95%. GENERAL: Sedated on ventilator. HEENT: Grossly within normal limits. CHEST: Decreased breath sounds bilaterally with bilateral chest tubes noted. CARDIOVASCULAR: Atrial fibrillation. ABDOMEN: Soft. Hypoactive bowel sounds. Minimal gaseous distention. No masses or hepatosplenomegaly noted. EXTREMITIES: Without edema. LABORATORY DATA: WBC 10.3, hemoglobin low at 8.6. PTT high at 92.7, procalcitonin high at 1.79, BUN high at 102, creatinine high at 1.95, glucose high at 190, magnesium high at 2.6. IMAGING: Flat and upright abdominal x-ray reveals no evidence of obstruction. IMPRESSION: Ileus related to critical illness. PLAN: Agree with NG tube placement. If the patient is not able to tolerate enteral feeds, parenteral nutrition is reasonable if support is continued. GI situation should not impact his overall prognosis. Dr. Kennedy has reviewed and discussed this with the patient's family. We will be available as needed. Iesha Fernandez, nurse-practitioner, dictating for Dr. Getachew Kennedy. /MODL Getachew Kennedy M.D. / [id number] CC: Jaswinder Winkler D.O. Stephen Martin, M.D.
--- NOTE | ~2016-12-14 | OP ---
Record Of Operation [facility] [address] [facility] [address] [place]. [address] NAME: TRAM BLACKMON : 43 STATUS : ADM IN [facility]#: [id number] AGE: 71 ADM/REG DATE : 12/14/16 MR#: [id number] REPORT SERV DATE: 12/23/16 DICTATED BY: SEAN GONZALEZ DATE: 12/23/16 REPORT STATUS : Draft TRANSCRIBED BY: MODL DATE: 12/23/16 DATE OF PROCEDURE: 12/23/2016 PREOPERATIVE DIAGNOSIS: Left-sided pneumothorax, status post coronary bypass grafting on mechanical ventilation. Had previous left-sided chest tube placement. POSTOPERATIVE DIAGNOSIS: Left-sided pneumothorax, status post coronary bypass grafting on mechanical ventilation. Had previous left-sided chest tube placement with thrombosis of previously placed left side chest tube. OPERATIVE PROCEDURE: Left-sided chest tube placement for relief of pneumothorax. ANESTHESIA: 1% localized plaquing anesthesia. OPERATIVE PROCEDURE: The patient was in ICU in supine position and had the thrombosed left- sided chest tube removed. The left chest was prepped and draped in usual fashion. Left- sided chest tube incision was examined and digitally explored and three large breaths were given by way of the ventilator to fully expand the left-sided lung, and air was evacuated from the left pleural space, and the lung was fully expanded. A 32-Uzbek chest tube was then placed under direct visualization into the left pleural space and directed superiorly and laterally. Chest x-ray was obtained at the bedside and excellent tube position was noted superiorly and the lung was fully expanded. The chest tube was sutured in place with #2 silk suture placed to Pleur-evac suction. Air leak persists, and the patient had dressing placed and remained stable in the ICU. ANA/ULISES Sean Gonzalez M.D. / [id number] CC: Jaswinder Owusu D.O.
--- NOTE | ~2016-12-14 | OP ---
Record Of Operation [facility] [address] [place]. [address] NAME: TRAM BLACKMON : 41 STATUS : ADM IN PAT#: [id number] AGE: 71 ADM/REG DATE : 12/14/16 MR#: [id number] REPORT SERV DATE: 12/17/16 DICTATED BY: YIFAN GUAJARDO DATE: 12/17/16 REPORT STATUS : Draft TRANSCRIBED BY: MODL DATE: 12/17/16 DATE OF PROCEDURE: 12/17/2016 PULMONARY AND CRITICAL CARE MEDICINE RE-INTUBATION NOTE INDICATION: Acute hypoxemic respiratory failure. PREMEDICATION: Etomidate 20 mg IV x1, rocuronium 50 mg IV x1 and fentanyl 100 mcg IV x1 dose after re-intubation. He was started on fentanyl and Precedex infusions as well for ongoing sedation. CONSENT: Verbal from the patient who was awake and oriented although short of breath at the time of assessment. PROCEDURE IN DETAIL: Mr. Blackmon was extubated earlier today. He was on diuretics and BiPAP with ongoing respiratory distress despite escalation of his BiPAP support. Ultimately, a decision was made to proceed with re-intubation. He was premedicated with the above and #3 GlideScope was lubricated and advanced into his mouth and his vocal cords were clearly visualized and #8 endotracheal tube which had also been pre-lubricated, was advanced under direct visualization into his trachea to a depth of 22 cm at the lips and secured to the patient with tape. An OG tube was also placed. Following intubation he had bilateral breath sounds which were somewhat coarse with crackles at the bases. There was condensation in the tube, blue to yellow color change on color oximeter with bagging and absent breath sounds over the fundus of the stomach with bagging. His initial O2 saturation on 100% FiO2 18/8, BiPAP was 89%. Lowest during intubation was 86% and his was 94% on 100% FiO2, 500 tidal volume, 14 of rate, and 8 of PEEP post intubation, and we continued to make frequent ventilator adjustments over the next 20 minutes to obtain satisfactory peak pressures and better oxygenation. NAN/ULISES Yifan Guajardo MD / [id number] CC: Jaswinder Winkler D.O.
[~2016-12-14 10:59] MED LIST changes: +LIVALO2 MG PO
[2016-12-14 11:46] LABS: BASOPHILS 0.4 %; BASOPHILS ABSOLUTE 0.03 10/3/uL (0.0-0.16); EOSINOPHILS 2.4 %; HEMATOCRIT 46.5 % (40.0-51.0); HEMOGLOBIN 16.3 g/dL (13.6-17.8); IMMATURE GRANULOCYTES 0.2 %; IMMATURE GRANULOCYTES ABSOLUTE 0.02 10/3/uL (0.0-0.11); LYMPHOCYTES 24.6 %; LYMPHOCYTES ABSOLUTE 2.05 10/3/uL (0.67-4.30); MEAN CORPUS HGB CONC 35.1 g/dL (32.0-36.0); MEAN CORPUSCULAR HEMOGLOB 31.5 pg (26.0-34.0); MEAN CORPUSCULAR VOLUME 89.9 fL (80-100); MEAN PLATELET VOLUME 9.3 fL (9.2-13.0); MONOCYTES 10.1 %; MONOCYTES ABSOLUTE 0.84 10/3/uL (0.21-1.20); NEUTROPHILS 62.3 %; NEUTROPHILS ABSOLUTE 5.19 10/3/uL (2.02-8.40); PLATELET COUNT 148 10/3/uL (150-400); RBC DISTRIBUTION WIDTH 15.1 % (12.0-16.0); RED CELL COUNT 5.17 10/6/uL (4.7-6.1); WHITE BLOOD CELLS 8.3 10/3/uL (4.5-10.5)
[2016-12-14 11:48] LABS: MANUAL DIFF NO %
[2016-12-14 11:55] LABS: INTERNATIONAL NORMAL RATI 1.2 UNITS (-)
[2016-12-14 11:58] LABS: BUN (BLOOD UREA NITROGEN) 16 MG/DL (6-23); CALCIUM, SERUM 9.3 MG/DL (8.5-10.4); CHLORIDE, SERUM 105 MMOL/L (96-112); CO2 (CARBON DIOXIDE) 29 MMOL/L (24-34); CREATININE 1.03 MG/DL (0.70-1.30); GFR AFRICAN AMERICAN 83 ML/MIN (>=60); GFR NON AFRICAN AMERICAN 72 ML/MIN (>=60); GLUCOSE, SERUM 155 MG/DL (60-99); POTASSIUM, SERUM 4.2 MMOL/L (3.5-5.3); PROTIME (NOT ORD) 15.1 SEC (12.0-14.5); SODIUM, SERUM 140 MMOL/L (135-148)
[2016-12-14] MEDS ORDERED: COREG3 PO (11:58)
[2016-12-14] MEDS ORDERED: LOP25 PO (12:00)
[2016-12-14] MEDS ORDERED: ASA5GR PO (12:01)
[2016-12-14 19:22] LABS: ASCORBIC ACID (UR NOT ORDER) 20 (NEG); BILIRUBIN, URINE NEGATIVE (NEG); KETONE, URINE NEGATIVE (NEG); LEUKOCYTE ESTERASE(NOT OR NEG (NEG); WBC (NOT ORDERED) (RFLEX) < 1 (0-5)
[2016-12-15 03:51] LABS: BASOPHILS 0.3 %; BASOPHILS ABSOLUTE 0.02 10/3/uL (0.0-0.16); EOSINOPHILS 2.6 %; EOSINOPHILS ABSOLUTE 0.15 10/3/uL (0.0-0.53); HEMATOCRIT 42.1 % (40.0-51.0); HEMOGLOBIN 14.2 g/dL (13.6-17.8); IMMATURE GRANULOCYTES 0.2 %; IMMATURE GRANULOCYTES ABSOLUTE 0.01 10/3/uL (0.0-0.11); LYMPHOCYTES 28.1 %; LYMPHOCYTES ABSOLUTE 1.63 10/3/uL (0.67-4.30); MANUAL DIFF NO %; MEAN CORPUS HGB CONC 33.7 g/dL (32.0-36.0); MEAN CORPUSCULAR HEMOGLOB 30.3 pg (26.0-34.0); MEAN CORPUSCULAR VOLUME 89.8 fL (80-100); MEAN PLATELET VOLUME 9.3 fL (9.2-13.0); MONOCYTES 13.4 %; MONOCYTES ABSOLUTE 0.78 10/3/uL (0.21-1.20); NEUTROPHILS 55.4 %; NEUTROPHILS ABSOLUTE 3.22 10/3/uL (2.02-8.40); PLATELET COUNT 122 10/3/uL (150-400); RBC DISTRIBUTION WIDTH 15.2 % (12.0-16.0); RED CELL COUNT 4.69 10/6/uL (4.7-6.1); WHITE BLOOD CELLS 5.8 10/3/uL (4.5-10.5)
[2016-12-15 04:00] LABS: INTERNATIONAL NORMAL RATI 1.3 UNITS (-); PROTIME (NOT ORD) 15.6 SEC (12.0-14.5)
[2016-12-15 04:06] LABS: BUN (BLOOD UREA NITROGEN) 18 MG/DL (6-23); CALCIUM, SERUM 8.4 MG/DL (8.5-10.4); CHLORIDE, SERUM 104 MMOL/L (96-112); CO2 (CARBON DIOXIDE) 29 MMOL/L (24-34); CREATININE 0.97 MG/DL (0.70-1.30); GFR AFRICAN AMERICAN 89 ML/MIN (>=60); GFR NON AFRICAN AMERICAN 77 ML/MIN (>=60); GLUCOSE, SERUM 116 MG/DL (60-99); IRON BINDING CAPACITY 281 MCG/DL (250-450); POTASSIUM, SERUM 4.2 MMOL/L (3.5-5.3); SODIUM, SERUM 141 MMOL/L (135-148)
[2016-12-15 14:14] LABS: HEMATOCRIT 35.4 % (40.0-51.0); PLATELET COUNT 65 10/3/uL (150-400)
[2016-12-15 14:14] LABS: BE (BASE EXCESS) -4.8 MEQ/L (0 +/- 2.5); CARBOXYHEMOGLOBIN 0.7 % (0-3); HCO3 (ACTUAL BICARBONATE) 20.7 MEQ/L (23-27); HEMOBLOGIN CONTENT 12.5 G/DL (14-18); INSTRUMENT SERIAL # 11843; METHEMOGLOBIN 0.6 % (0-3); MODE SIMV; O2 CONTENT 17.1 VOL% (18-24); OPERATOR ID 13715; PCO2 (CO2 TENSION) 40 MMHG (35-45); PO2 (O2 TENSION) 129 MMHG (79-93); SAMPLE Arterial; TIDAL VOLUME 800 ML; pH 7.33 (7.37-7.43)
[2016-12-15 14:21] LABS: BUN (BLOOD UREA NITROGEN) 15 MG/DL (6-23); CALCIUM, SERUM 8.1 MG/DL (8.5-10.4); CHLORIDE, SERUM 113 MMOL/L (96-112); CREATININE 0.93 MG/DL (0.70-1.30); GFR AFRICAN AMERICAN 94 ML/MIN (>=60); GFR NON AFRICAN AMERICAN 81 ML/MIN (>=60); POTASSIUM, SERUM 3.7 MMOL/L (3.5-5.3); SODIUM, SERUM 143 MMOL/L (135-148)
[2016-12-15 14:22] LABS: CO2 (CARBON DIOXIDE) 24 MMOL/L (24-34); GLUCOSE, SERUM 90 MG/DL (60-99); INTERNATIONAL NORMAL RATI 1.8 UNITS (-); PARTIAL THROMBO TIME 31.2 SEC (22.5-37.2); PROTIME (NOT ORD) 20.9 SEC (12.0-14.5)
[2016-12-15 17:48] LABS: BE (BASE EXCESS) -2.1 MEQ/L (0 +/- 2.5); CARBOXYHEMOGLOBIN 0.8 % (0-3); HCO3 (ACTUAL BICARBONATE) 22.9 MEQ/L (23-27); HEMOBLOGIN CONTENT 13.9 G/DL (14-18); INSTRUMENT SERIAL # 11843; METHEMOGLOBIN 0.5 % (0-3); MODE SIMV; O2 CONTENT 18.2 VOL% (18-24); OPERATOR ID 13715; PCO2 (CO2 TENSION) 40 MMHG (35-45); PO2 (O2 TENSION) 76 MMHG (79-93); PRESSURE SUPPORT 8 cm.H2O; SAMPLE Arterial; TIDAL VOLUME 800 ML; pH 7.37 (7.37-7.43)
[2016-12-15 20:03] LABS: HEMATOCRIT 38.4 % (40.0-51.0); HEMOGLOBIN 13.3 g/dL (13.6-17.8)
[2016-12-15 20:10] LABS: BE (BASE EXCESS) -0.9 MEQ/L (0 +/- 2.5); CARBOXYHEMOGLOBIN 0.5 % (0-3); HCO3 (ACTUAL BICARBONATE) 24.2 MEQ/L (23-27); HEMOBLOGIN CONTENT 13.9 G/DL (14-18); INSTRUMENT SERIAL # 11843; METHEMOGLOBIN 0.4 % (0-3); MODE SIMV; O2 CONTENT 18.2 VOL% (18-24); OPERATOR ID 23712; PCO2 (CO2 TENSION) 42 MMHG (35-45); PO2 (O2 TENSION) 73 MMHG (79-93); PRESSURE SUPPORT 10 cm.H2O; SAMPLE Arterial; TIDAL VOLUME 800 ML; pH 7.38 (7.37-7.43)
[2016-12-15 20:12] LABS: POTASSIUM, SERUM 3.9 MMOL/L (3.5-5.3)
[2016-12-16 03:38] LABS: BASOPHILS 0.1 %; BASOPHILS ABSOLUTE 0.01 10/3/uL (0.0-0.16); EOSINOPHILS 0.1 %; EOSINOPHILS ABSOLUTE 0.01 10/3/uL (0.0-0.53); HEMATOCRIT 36.3 % (40.0-51.0); HEMOGLOBIN 12.3 g/dL (13.6-17.8); IMMATURE GRANULOCYTES 0.4 %; IMMATURE GRANULOCYTES ABSOLUTE 0.04 10/3/uL (0.0-0.11); LYMPHOCYTES 8.8 %; LYMPHOCYTES ABSOLUTE 0.88 10/3/uL (0.67-4.30); MEAN CORPUS HGB CONC 33.9 g/dL (32.0-36.0); MEAN CORPUSCULAR HEMOGLOB 30.1 pg (26.0-34.0); MEAN CORPUSCULAR VOLUME 88.8 fL (80-100); MEAN PLATELET VOLUME 9.7 fL (9.2-13.0); MONOCYTES 7.6 %; MONOCYTES ABSOLUTE 0.76 10/3/uL (0.21-1.20); NEUTROPHILS ABSOLUTE 8.34 10/3/uL (2.02-8.40); PLATELET COUNT 84 10/3/uL (150-400); RED CELL COUNT 4.09 10/6/uL (4.7-6.1)
[2016-12-16 03:39] LABS: MANUAL DIFF NO %
[2016-12-16 03:42] LABS: INTERNATIONAL NORMAL RATI 1.4 UNITS (-)
[2016-12-16 03:47] LABS: PROTIME (NOT ORD) 17.1 SEC (12.0-14.5)
[2016-12-16 03:55] LABS: BUN (BLOOD UREA NITROGEN) 17 MG/DL (6-23); CALCIUM, SERUM 8.3 MG/DL (8.5-10.4); CHLORIDE, SERUM 114 MMOL/L (96-112); CO2 (CARBON DIOXIDE) 24 MMOL/L (24-34); CREATININE 1.01 MG/DL (0.70-1.30); GFR AFRICAN AMERICAN 85 ML/MIN (>=60); GFR NON AFRICAN AMERICAN 73 ML/MIN (>=60); GLUCOSE, SERUM 112 MG/DL (60-99); SODIUM, SERUM 143 MMOL/L (135-148)
[2016-12-16 04:20] LABS: BE (BASE EXCESS) -2.8 MEQ/L (0 +/- 2.5); CARBOXYHEMOGLOBIN 0.2 % (0-3); HCO3 (ACTUAL BICARBONATE) 21.5 MEQ/L (23-27); INSTRUMENT SERIAL # 11843; METHEMOGLOBIN 0.6 % (0-3); MODE SIMV; O2 CONTENT 17.4 VOL% (18-24); PCO2 (CO2 TENSION) 36 MMHG (35-45); PO2 (O2 TENSION) 82 MMHG (79-93); PRESSURE SUPPORT 10 cm.H2O; SAMPLE Arterial; TIDAL VOLUME 800 ML
[2016-12-16 10:14] LABS: HEMATOCRIT 34.5 % (40.0-51.0); HEMOGLOBIN 11.9 g/dL (13.6-17.8)
[2016-12-16 10:22] LABS: POTASSIUM, SERUM 4.2 MMOL/L (3.5-5.3)
[2016-12-16 12:36] LABS: BE (BASE EXCESS) -2.4 MEQ/L (0 +/- 2.5); CARBOXYHEMOGLOBIN 0.3 % (0-3); HCO3 (ACTUAL BICARBONATE) 21.4 MEQ/L (23-27); HEMOBLOGIN CONTENT 12.8 G/DL (14-18); INSTRUMENT SERIAL # 11843; METHEMOGLOBIN 0.5 % (0-3); O2 CONTENT 15.8 VOL% (18-24); OPERATOR ID 19104; PCO2 (CO2 TENSION) 34 MMHG (35-45); PO2 (O2 TENSION) 54 MMHG (79-93); SAMPLE Arterial; pH 7.42 (7.37-7.43)
[2016-12-16 15:41] LABS: HEMOGLOBIN 11.7 g/dL (13.6-17.8)
[2016-12-16 15:52] LABS: POTASSIUM, SERUM 3.7 MMOL/L (3.5-5.3)
[2016-12-17 03:41] LABS: BE (BASE EXCESS) -1.6 MEQ/L (0 +/- 2.5); HCO3 (ACTUAL BICARBONATE) 22.8 MEQ/L (23-27); HEMOBLOGIN CONTENT 11.9 G/DL (14-18); INSTRUMENT SERIAL # 11843; METHEMOGLOBIN 0.4 % (0-3); MODE CMV; O2 CONTENT 15.5 VOL% (18-24); OPERATOR ID 23712; PCO2 (CO2 TENSION) 38 MMHG (35-45); PO2 (O2 TENSION) 68 MMHG (79-93); SAMPLE Arterial; TIDAL VOLUME 450 ML
[2016-12-17 05:16] LABS: BASOPHILS 0.1 %; BASOPHILS ABSOLUTE 0.01 10/3/uL (0.0-0.16); EOSINOPHILS 0.1 %; EOSINOPHILS ABSOLUTE 0.01 10/3/uL (0.0-0.53); HEMOGLOBIN 11.1 g/dL (13.6-17.8); IMMATURE GRANULOCYTES 0.5 %; IMMATURE GRANULOCYTES ABSOLUTE 0.04 10/3/uL (0.0-0.11); LYMPHOCYTES 14.8 %; LYMPHOCYTES ABSOLUTE 1.25 10/3/uL (0.67-4.30); MEAN CORPUS HGB CONC 33.6 g/dL (32.0-36.0); MEAN CORPUSCULAR HEMOGLOB 30.5 pg (26.0-34.0); MEAN CORPUSCULAR VOLUME 90.7 fL (80-100); MONOCYTES 10.3 %; MONOCYTES ABSOLUTE 0.87 10/3/uL (0.21-1.20); NEUTROPHILS 74.2 %; NEUTROPHILS ABSOLUTE 6.25 10/3/uL (2.02-8.40); PLATELET COUNT 73 10/3/uL (150-400); RBC DISTRIBUTION WIDTH 15.6 % (12.0-16.0); RED CELL COUNT 3.64 10/6/uL (4.7-6.1); WHITE BLOOD CELLS 8.4 10/3/uL (4.5-10.5)
[2016-12-17 05:21] LABS: MANUAL DIFF NO %
[2016-12-17 05:33] LABS: A/G RATIO 1.6 (0.7-1.9); ALBUMIN 3.6 G/DL (3.5-5.0); CALCIUM, SERUM 8.6 MG/DL (8.5-10.4); CHLORIDE, SERUM 107 MMOL/L (96-112); CO2 (CARBON DIOXIDE) 24 MMOL/L (24-34); CREATININE 1.15 MG/DL (0.70-1.30); GFR AFRICAN AMERICAN 73 ML/MIN (>=60); GFR NON AFRICAN AMERICAN 63 ML/MIN (>=60); GLOBULIN 2.3 G/DL (2.5-4.1); POTASSIUM, SERUM 4.3 MMOL/L (3.5-5.3); SGOT(AST) 56 U/L (5-40); SGPT(ALT) 47 U/L (5-65); SODIUM, SERUM 139 MMOL/L (135-148); TOTAL PROTEIN 5.9 G/DL (6.0-8.5)
[2016-12-17 05:35] LABS: ALKALINE PHOSPHATASE 94 U/L (45-117); BUN (BLOOD UREA NITROGEN) 24 MG/DL (6-23); GLUCOSE, SERUM 196 MG/DL (60-99)
[2016-12-17 11:08] LABS: PROCALCITONIN 0.44 ng/mL (<0.5)
[2016-12-17 14:41] LABS: ASCORBIC ACID (UR NOT ORDER) NEG (NEG); BILIRUBIN, URINE NEGATIVE (NEG); KETONE, URINE NEGATIVE (NEG); LEUKOCYTE ESTERASE(NOT OR NEG (NEG); WBC (NOT ORDERED) (RFLEX) 1 (0-5)
[2016-12-18 03:28] LABS: BE (BASE EXCESS) 1.9 MEQ/L (0 +/- 2.5); CARBOXYHEMOGLOBIN 0.3 % (0-3); HCO3 (ACTUAL BICARBONATE) 27.4 MEQ/L (23-27); INSTRUMENT SERIAL # 11843; METHEMOGLOBIN 0.4 % (0-3); MODE CMV; O2 CONTENT 15.2 VOL% (18-24); OPERATOR ID 32193; PCO2 (CO2 TENSION) 47 MMHG (35-45); PO2 (O2 TENSION) 62 MMHG (79-93); SAMPLE Arterial; TIDAL VOLUME 450 ML; pH 7.39 (7.37-7.43)
[2016-12-18 03:38] LABS: BASOPHILS 0.1 %; BASOPHILS ABSOLUTE 0.01 10/3/uL (0.0-0.16); EOSINOPHILS 0.4 %; EOSINOPHILS ABSOLUTE 0.03 10/3/uL (0.0-0.53); HEMATOCRIT 32.2 % (40.0-51.0); IMMATURE GRANULOCYTES 0.4 %; IMMATURE GRANULOCYTES ABSOLUTE 0.03 10/3/uL (0.0-0.11); LYMPHOCYTES 13.4 %; LYMPHOCYTES ABSOLUTE 1.01 10/3/uL (0.67-4.30); MANUAL DIFF NO %; MEAN CORPUS HGB CONC 34.2 g/dL (32.0-36.0); MEAN CORPUSCULAR HEMOGLOB 31.1 pg (26.0-34.0); MEAN PLATELET VOLUME 9.8 fL (9.2-13.0); MONOCYTES 9.5 %; MONOCYTES ABSOLUTE 0.71 10/3/uL (0.21-1.20); NEUTROPHILS 76.2 %; NEUTROPHILS ABSOLUTE 5.72 10/3/uL (2.02-8.40); PLATELET COUNT 66 10/3/uL (150-400); RBC DISTRIBUTION WIDTH 15.5 % (12.0-16.0); RED CELL COUNT 3.54 10/6/uL (4.7-6.1); WHITE BLOOD CELLS 7.5 10/3/uL (4.5-10.5)
[2016-12-18 03:54] LABS: A/G RATIO 1.3 (0.7-1.9); ALBUMIN 3.5 G/DL (3.5-5.0); ALKALINE PHOSPHATASE 88 U/L (45-117); CALCIUM, SERUM 8.1 MG/DL (8.5-10.4); CHLORIDE, SERUM 108 MMOL/L (96-112); CO2 (CARBON DIOXIDE) 27 MMOL/L (24-34); GFR AFRICAN AMERICAN 57 ML/MIN (>=60); GFR NON AFRICAN AMERICAN 49 ML/MIN (>=60); GLOBULIN 2.7 G/DL (2.5-4.1); PHOSPHORUS, SERUM 3.7 MG/DL (2.5-4.5); POTASSIUM, SERUM 3.8 MMOL/L (3.5-5.3); SGOT(AST) 31 U/L (5-40); SGPT(ALT) 35 U/L (5-65); SODIUM, SERUM 143 MMOL/L (135-148); TOTAL PROTEIN 6.2 G/DL (6.0-8.5)
[2016-12-18 03:58] LABS: BUN (BLOOD UREA NITROGEN) 38 MG/DL (6-23); GLUCOSE, SERUM 154 MG/DL (60-99); TOTAL BILIRUBIN 3.5 MG/DL (0-1.2)
[2016-12-18 04:14] LABS: PREALBUMIN 8.4 MG/DL (17.0-43.0)
[2016-12-18 10:10] LABS: PROCALCITONIN 0.54 ng/mL (<0.5)
[2016-12-18 12:08] LABS: BE (BASE EXCESS) -0.8 MEQ/L (0 +/- 2.5); CARBOXYHEMOGLOBIN 0.1 % (0-3); HCO3 (ACTUAL BICARBONATE) 25.2 MEQ/L (23-27); HEMOBLOGIN CONTENT 11.7 G/DL (14-18); INSTRUMENT SERIAL # 11843; METHEMOGLOBIN 0.4 % (0-3); MODE CMV; O2 CONTENT 15.4 VOL% (18-24); OPERATOR ID 13715; PCO2 (CO2 TENSION) 48 MMHG (35-45); PO2 (O2 TENSION) 79 MMHG (79-93); SAMPLE Arterial; TIDAL VOLUME 450 ML; pH 7.34 (7.37-7.43)
[2016-12-18 16:10] LABS: BE (BASE EXCESS) -0.2 MEQ/L (0 +/- 2.5); CARBOXYHEMOGLOBIN 0.3 % (0-3); HCO3 (ACTUAL BICARBONATE) 26.3 MEQ/L (23-27); HEMOBLOGIN CONTENT 11.3 G/DL (14-18); INSTRUMENT SERIAL # 11843; METHEMOGLOBIN 0.5 % (0-3); MODE CMV; O2 CONTENT 14.9 VOL% (18-24); OPERATOR ID 13715; PCO2 (CO2 TENSION) 51 MMHG (35-45); PO2 (O2 TENSION) 82 MMHG (79-93); SAMPLE Arterial; TIDAL VOLUME 500 ML; pH 7.33 (7.37-7.43)
[2016-12-18 20:47] LABS: CALCIUM, SERUM 8.4 MG/DL (8.5-10.4); CHLORIDE, SERUM 108 MMOL/L (96-112); CO2 (CARBON DIOXIDE) 27 MMOL/L (24-34); CREATININE 1.63 MG/DL (0.70-1.30); GFR AFRICAN AMERICAN 48 ML/MIN (>=60); GFR NON AFRICAN AMERICAN 41 ML/MIN (>=60); PHOSPHORUS, SERUM 3.6 MG/DL (2.5-4.5); POTASSIUM, SERUM 3.5 MMOL/L (3.5-5.3); SODIUM, SERUM 144 MMOL/L (135-148)
[2016-12-18 20:48] LABS: BUN (BLOOD UREA NITROGEN) 45 MG/DL (6-23); GLUCOSE, SERUM 118 MG/DL (60-99)
[2016-12-19 03:14] LABS: BASOPHILS 0 %; EOSINOPHILS 0.2 %; EOSINOPHILS ABSOLUTE 0.01 10/3/uL (0.0-0.53); HEMATOCRIT 33.8 % (40.0-51.0); HEMOGLOBIN 11.2 g/dL (13.6-17.8); IMMATURE GRANULOCYTES 0.2 %; IMMATURE GRANULOCYTES ABSOLUTE 0.01 10/3/uL (0.0-0.11); LYMPHOCYTES 9.5 %; LYMPHOCYTES ABSOLUTE 0.58 10/3/uL (0.67-4.30); MANUAL DIFF NO %; MEAN CORPUS HGB CONC 33.1 g/dL (32.0-36.0); MEAN CORPUSCULAR HEMOGLOB 31.1 pg (26.0-34.0); MEAN CORPUSCULAR VOLUME 93.9 fL (80-100); MEAN PLATELET VOLUME 10.1 fL (9.2-13.0); MONOCYTES 7.7 %; MONOCYTES ABSOLUTE 0.47 10/3/uL (0.21-1.20); NEUTROPHILS 82.4 %; NEUTROPHILS ABSOLUTE 5.04 10/3/uL (2.02-8.40); PLATELET COUNT 73 10/3/uL (150-400); RBC DISTRIBUTION WIDTH 15.7 % (12.0-16.0); WHITE BLOOD CELLS 6.1 10/3/uL (4.5-10.5)
[2016-12-19 03:26] LABS: ALBUMIN 3.3 G/DL (3.5-5.0); BUN (BLOOD UREA NITROGEN) 46 MG/DL (6-23); CALCIUM, SERUM 8.3 MG/DL (8.5-10.4); CHLORIDE, SERUM 107 MMOL/L (96-112); CO2 (CARBON DIOXIDE) 29 MMOL/L (24-34); CREATININE 1.63 MG/DL (0.70-1.30); GFR AFRICAN AMERICAN 48 ML/MIN (>=60); GFR NON AFRICAN AMERICAN 41 ML/MIN (>=60); POTASSIUM, SERUM 3.6 MMOL/L (3.5-5.3); SODIUM, SERUM 142 MMOL/L (135-148)
[2016-12-19 03:27] LABS: GLUCOSE, SERUM 143 MG/DL (60-99); PHOSPHORUS, SERUM 4.6 MG/DL (2.5-4.5)
[2016-12-19 03:42] LABS: PLATELET ESTIMATE DEC (ADEQUATE); RBC MORPHOLOGY NORM (NORMAL)
[2016-12-19 07:55] LABS: BE (BASE EXCESS) -0.5 MEQ/L (0 +/- 2.5); CARBOXYHEMOGLOBIN 0.3 % (0-3); HCO3 (ACTUAL BICARBONATE) 27.2 MEQ/L (23-27); HEMOBLOGIN CONTENT 12.1 G/DL (14-18); INSTRUMENT SERIAL # 11843; METHEMOGLOBIN 0.5 % (0-3); MODE CMV; O2 CONTENT 15.5 VOL% (18-24); PCO2 (CO2 TENSION) 59 MMHG (35-45); PO2 (O2 TENSION) 67 MMHG (79-93); SAMPLE Arterial; TIDAL VOLUME 500 ML; pH 7.28 (7.37-7.43)
[2016-12-19 17:42] LABS: POTASSIUM, SERUM 3.9 MMOL/L (3.5-5.3)
[2016-12-20 04:41] LABS: BASOPHILS 0.2 %; BASOPHILS ABSOLUTE 0.01 10/3/uL (0.0-0.16); EOSINOPHILS 4.7 %; EOSINOPHILS ABSOLUTE 0.24 10/3/uL (0.0-0.53); HEMOGLOBIN 9.6 g/dL (13.6-17.8); IMMATURE GRANULOCYTES 0.4 %; IMMATURE GRANULOCYTES ABSOLUTE 0.02 10/3/uL (0.0-0.11); LYMPHOCYTES 14.2 %; LYMPHOCYTES ABSOLUTE 0.72 10/3/uL (0.67-4.30); MEAN CORPUS HGB CONC 33.1 g/dL (32.0-36.0); MEAN CORPUSCULAR HEMOGLOB 31.2 pg (26.0-34.0); MEAN CORPUSCULAR VOLUME 94.2 fL (80-100); MEAN PLATELET VOLUME 10.8 fL (9.2-13.0); MONOCYTES 9.1 %; MONOCYTES ABSOLUTE 0.46 10/3/uL (0.21-1.20); NEUTROPHILS 71.4 %; NEUTROPHILS ABSOLUTE 3.63 10/3/uL (2.02-8.40); PLATELET COUNT 79 10/3/uL (150-400); RBC DISTRIBUTION WIDTH 16.4 % (12.0-16.0); RED CELL COUNT 3.08 10/6/uL (4.7-6.1); WHITE BLOOD CELLS 5.1 10/3/uL (4.5-10.5)
[2016-12-20 04:42] LABS: MANUAL DIFF NO %
[2016-12-20 04:57] LABS: ALBUMIN 2.7 G/DL (3.5-5.0); CALCIUM, SERUM 8.1 MG/DL (8.5-10.4); CHLORIDE, SERUM 109 MMOL/L (96-112); CO2 (CARBON DIOXIDE) 28 MMOL/L (24-34); CREATININE 1.67 MG/DL (0.70-1.30); GFR AFRICAN AMERICAN 46 ML/MIN (>=60); GFR NON AFRICAN AMERICAN 40 ML/MIN (>=60); SODIUM, SERUM 146 MMOL/L (135-148)
[2016-12-20 04:59] LABS: BUN (BLOOD UREA NITROGEN) 57 MG/DL (6-23); GLUCOSE, SERUM 208 MG/DL (60-99); PHOSPHORUS, SERUM 3.6 MG/DL (2.5-4.5)
[2016-12-20 05:32] LABS: PLATELET ESTIMATE DEC (ADEQUATE); RBC MORPHOLOGY NORM (NORMAL)
[2016-12-20 11:05] LABS: PROCALCITONIN 2.29 ng/mL (<0.5)
[2016-12-21 01:44] LABS: BE (BASE EXCESS) 1.6 MEQ/L (0 +/- 2.5); CARBOXYHEMOGLOBIN 0.3 % (0-3); HCO3 (ACTUAL BICARBONATE) 27.1 MEQ/L (23-27); HEMOBLOGIN CONTENT 10.4 G/DL (14-18); INSTRUMENT SERIAL # 11843; METHEMOGLOBIN 0.4 % (0-3); MODE CMV; O2 CONTENT 13.1 VOL% (18-24); OPERATOR ID 16469; PCO2 (CO2 TENSION) 47 MMHG (35-45); PO2 (O2 TENSION) 64 MMHG (79-93); SAMPLE Arterial; TIDAL VOLUME 550 ML; pH 7.38 (7.37-7.43)
[2016-12-21 03:24] LABS: BASOPHILS 0 %; EOSINOPHILS 4.8 %; EOSINOPHILS ABSOLUTE 0.26 10/3/uL (0.0-0.53); HEMATOCRIT 28.8 % (40.0-51.0); HEMOGLOBIN 9.4 g/dL (13.6-17.8); IMMATURE GRANULOCYTES 0.9 %; IMMATURE GRANULOCYTES ABSOLUTE 0.05 10/3/uL (0.0-0.11); LYMPHOCYTES 12.2 %; LYMPHOCYTES ABSOLUTE 0.66 10/3/uL (0.67-4.30); MANUAL DIFF NO %; MEAN CORPUS HGB CONC 32.6 g/dL (32.0-36.0); MEAN PLATELET VOLUME 11.2 fL (9.2-13.0); MONOCYTES 8.9 %; MONOCYTES ABSOLUTE 0.48 10/3/uL (0.21-1.20); NEUTROPHILS 73.2 %; NEUTROPHILS ABSOLUTE 3.94 10/3/uL (2.02-8.40); PLATELET COUNT 100 10/3/uL (150-400); RBC DISTRIBUTION WIDTH 16.5 % (12.0-16.0); RED CELL COUNT 3.03 10/6/uL (4.7-6.1); WHITE BLOOD CELLS 5.4 10/3/uL (4.5-10.5)
[2016-12-21 03:35] LABS: CALCIUM, SERUM 8.1 MG/DL (8.5-10.4); CHLORIDE, SERUM 110 MMOL/L (96-112); CO2 (CARBON DIOXIDE) 30 MMOL/L (24-34); CREATININE 1.55 MG/DL (0.70-1.30); GFR AFRICAN AMERICAN 51 ML/MIN (>=60); GFR NON AFRICAN AMERICAN 44 ML/MIN (>=60); GLUCOSE, SERUM 189 MG/DL (60-99); POTASSIUM, SERUM 3.9 MMOL/L (3.5-5.3); SODIUM, SERUM 147 MMOL/L (135-148)
[2016-12-21 03:36] LABS: BUN (BLOOD UREA NITROGEN) 67 MG/DL (6-23)
[2016-12-21 03:54] LABS: PROCALCITONIN 1.69 ng/mL (<0.5)
[2016-12-21 13:36] LABS: HEPARIN-INDUCED PLATELET AB NEGATIVE (NEGATIVE); HIT PATIENT O.D. 0.109 OD (0.000-0.299)
[2016-12-21 14:12] LABS: BE (BASE EXCESS) 2.4 MEQ/L (0 +/- 2.5); CARBOXYHEMOGLOBIN 0.2 % (0-3); HCO3 (ACTUAL BICARBONATE) 27.6 MEQ/L (23-27); HEMOBLOGIN CONTENT 10.8 G/DL (14-18); INSTRUMENT SERIAL # 11843; METHEMOGLOBIN 0.4 % (0-3); MODE CMV; O2 CONTENT 12.9 VOL% (18-24); PCO2 (CO2 TENSION) 45 MMHG (35-45); PO2 (O2 TENSION) 54 MMHG (79-93); SAMPLE Arterial; TIDAL VOLUME 550 ML
[2016-12-21 18:28] LABS: BE (BASE EXCESS) 0.5 MEQ/L (0 +/- 2.5); CARBOXYHEMOGLOBIN 0.3 % (0-3); HCO3 (ACTUAL BICARBONATE) 27.3 MEQ/L (23-27); HEMOBLOGIN CONTENT 10.9 G/DL (14-18); INSTRUMENT SERIAL # 11843; METHEMOGLOBIN 0.5 % (0-3); O2 CONTENT 14.7 VOL% (18-24); PCO2 (CO2 TENSION) 54 MMHG (35-45); PO2 (O2 TENSION) 98 MMHG (79-93); pH 7.32 (7.37-7.43)
[2016-12-21 18:29] LABS: MODE CMV; SAMPLE Arterial; TIDAL VOLUME 550 ML
[2016-12-22 03:37] LABS: BE (BASE EXCESS) 2.1 MEQ/L (0 +/- 2.5); CARBOXYHEMOGLOBIN 0.3 % (0-3); HEMOBLOGIN CONTENT 10.7 G/DL (14-18); INSTRUMENT SERIAL # 11843; METHEMOGLOBIN 0.5 % (0-3); MODE CMV; O2 CONTENT 14.3 VOL% (18-24); OPERATOR ID 17370; PCO2 (CO2 TENSION) 50 MMHG (35-45); PO2 (O2 TENSION) 88 MMHG (79-93); SAMPLE Arterial; TIDAL VOLUME 550 ML; pH 7.37 (7.37-7.43)
[2016-12-22 04:21] LABS: BASOPHILS 0.4 %; BASOPHILS ABSOLUTE 0.03 10/3/uL (0.0-0.16); EOSINOPHILS 2.7 %; EOSINOPHILS ABSOLUTE 0.19 10/3/uL (0.0-0.53); HEMATOCRIT 30.2 % (40.0-51.0); HEMOGLOBIN 9.7 g/dL (13.6-17.8); IMMATURE GRANULOCYTES 1.9 %; IMMATURE GRANULOCYTES ABSOLUTE 0.13 10/3/uL (0.0-0.11); LYMPHOCYTES 17.3 %; LYMPHOCYTES ABSOLUTE 1.21 10/3/uL (0.67-4.30); MEAN CORPUS HGB CONC 32.1 g/dL (32.0-36.0); MEAN CORPUSCULAR HEMOGLOB 30.7 pg (26.0-34.0); MEAN CORPUSCULAR VOLUME 95.6 fL (80-100); MEAN PLATELET VOLUME 10.9 fL (9.2-13.0); MONOCYTES 10.2 %; MONOCYTES ABSOLUTE 0.71 10/3/uL (0.21-1.20); NEUTROPHILS 67.5 %; NEUTROPHILS ABSOLUTE 4.72 10/3/uL (2.02-8.40); NUCLEATED RED BLOOD CELLS 0.8 /100WBC (0-0); RBC DISTRIBUTION WIDTH 16.6 % (12.0-16.0); RED CELL COUNT 3.16 10/6/uL (4.7-6.1)
[2016-12-22 04:22] LABS: MANUAL DIFF NO %; PLATELET COUNT 139 10/3/uL (150-400)
[2016-12-22 04:35] LABS: CALCIUM, SERUM 8.3 MG/DL (8.5-10.4); CHLORIDE, SERUM 107 MMOL/L (96-112); CO2 (CARBON DIOXIDE) 32 MMOL/L (24-34); CREATININE 1.69 MG/DL (0.70-1.30); GFR AFRICAN AMERICAN 46 ML/MIN (>=60); GFR NON AFRICAN AMERICAN 39 ML/MIN (>=60); POTASSIUM, SERUM 4.6 MMOL/L (3.5-5.3); SODIUM, SERUM 146 MMOL/L (135-148)
[2016-12-22 04:38] LABS: BUN (BLOOD UREA NITROGEN) 78 MG/DL (6-23); GLUCOSE, SERUM 138 MG/DL (60-99)
[2016-12-22 05:00] LABS: PROCALCITONIN 1.61 ng/mL (<0.5)
[2016-12-22 05:16] LABS: INTERNATIONAL NORMAL RATI 1.3 UNITS (-)
[2016-12-22 05:17] LABS: PARTIAL THROMBO TIME 80.7 SEC (22.5-37.2)
[2016-12-22 15:51] LABS: DIGOXIN 2.1 NG/ML (0.8-2.0)
[2016-12-22 18:42] LABS: BE (BASE EXCESS) 0.2 MEQ/L (0 +/- 2.5); CARBOXYHEMOGLOBIN 0.3 % (0-3); HCO3 (ACTUAL BICARBONATE) 24.2 MEQ/L (23-27); HEMOBLOGIN CONTENT 10.5 G/DL (14-18); INSTRUMENT SERIAL # 11843; METHEMOGLOBIN 0.3 % (0-3); MODE CMV; O2 CONTENT 13.7 VOL% (18-24); OPERATOR ID 18642; PCO2 (CO2 TENSION) 37 MMHG (35-45); PO2 (O2 TENSION) 73 MMHG (79-93); SAMPLE Arterial; TIDAL VOLUME 550 ML; pH 7.44 (7.37-7.43)
[2016-12-22 21:03] LABS: HEMATOCRIT 29.2 % (40.0-51.0); HEMOGLOBIN 9.4 g/dL (13.6-17.8); MANUAL DIFF YES %; MEAN CORPUS HGB CONC 32.2 g/dL (32.0-36.0); MEAN CORPUSCULAR HEMOGLOB 30.5 pg (26.0-34.0); MEAN CORPUSCULAR VOLUME 94.8 fL (80-100); MEAN PLATELET VOLUME 10.8 fL (9.2-13.0); NUCLEATED RED BLOOD CELLS 1.9 /100WBC (0-0); PLATELET COUNT 188 10/3/uL (150-400); RBC DISTRIBUTION WIDTH 16.6 % (12.0-16.0); RED CELL COUNT 3.08 10/6/uL (4.7-6.1); WHITE BLOOD CELLS 14.7 10/3/uL (4.5-10.5)
[2016-12-22 21:09] LABS: CALCIUM, SERUM 8.7 MG/DL (8.5-10.4); CHLORIDE, SERUM 107 MMOL/L (96-112); GFR AFRICAN AMERICAN 35 ML/MIN (>=60); GFR NON AFRICAN AMERICAN 30 ML/MIN (>=60); POTASSIUM, SERUM 4.7 MMOL/L (3.5-5.3); SODIUM, SERUM 145 MMOL/L (135-148)
[2016-12-22 21:10] LABS: BUN (BLOOD UREA NITROGEN) 95 MG/DL (6-23); CO2 (CARBON DIOXIDE) 27 MMOL/L (24-34); GLUCOSE, SERUM 185 MG/DL (60-99)
[2016-12-22 21:26] LABS: BAND NEUTROPHILS 9 %; IMMATURE GRANS ABSOLUTE (CALC) 0.88 10/3/uL (0.0-0.11); LYMPHOCYTES 9 %; LYMPHOCYTES ABSOLUTE (CALC) 1.32 10/3/uL (0.67-4.30); METAMYELOCYTES 5 %; MONOCYTES 4 %; MONOCYTES ABSOLUTE (CALC) 0.59 10/3/uL (0.21-1.20); MYELOCYTES 1 %; NEUTROPHILS ABSOLUTE (CALC) 11.91 10/3/uL (2.02-8.40); SEGMENTED NEUTROPHIL (0) 72 %; TOTAL NUCLEATED CELLS 100
[2016-12-22 21:27] LABS: PLATELET ESTIMATE ADQ (ADEQUATE); POLYCHROMASIA 1+ (2-5/OIF) (0-1/OIF)
[2016-12-22 21:28] LABS: ANISOCYTOSIS 1+ (5-10/OIF) (0-5/OIF); MACROCYTES 1+ (5-10/OIF) (0-5/OIF); MICROCYTES 1+ (5-10/OIF) (0-5/OIF)
[2016-12-23 03:45] LABS: HEMOGLOBIN 8.6 g/dL (13.6-17.8); MEAN CORPUS HGB CONC 32.8 g/dL (32.0-36.0); MEAN CORPUSCULAR HEMOGLOB 30.9 pg (26.0-34.0); MEAN CORPUSCULAR VOLUME 94.2 fL (80-100); MEAN PLATELET VOLUME 11.1 fL (9.2-13.0); NUCLEATED RED BLOOD CELLS 2.2 /100WBC (0-0); PLATELET COUNT 169 10/3/uL (150-400); RBC DISTRIBUTION WIDTH 16.2 % (12.0-16.0); RED CELL COUNT 2.78 10/6/uL (4.7-6.1); WHITE BLOOD CELLS 10.3 10/3/uL (4.5-10.5)
[2016-12-23 03:46] LABS: BE (BASE EXCESS) -3.2 MEQ/L (0 +/- 2.5); CARBOXYHEMOGLOBIN 0.3 % (0-3); HCO3 (ACTUAL BICARBONATE) 20.2 MEQ/L (23-27); HEMOBLOGIN CONTENT 8.8 G/DL (14-18); INSTRUMENT SERIAL # 11843; METHEMOGLOBIN 0.9 % (0-3); PCO2 (CO2 TENSION) 30 MMHG (35-45); PO2 (O2 TENSION) 93 MMHG (79-93); pH 7.44 (7.37-7.43)
[2016-12-23 03:46] LABS: HEMATOCRIT 26.2 % (40.0-51.0); MANUAL DIFF YES %
[2016-12-23 03:47] LABS: MODE CMV; O2 CONTENT 11.9 VOL% (18-24); OPERATOR ID 30014; SAMPLE Arterial; TIDAL VOLUME 550 ML
[2016-12-23 03:51] LABS: PARTIAL THROMBO TIME 92.7 SEC (22.5-37.2)
[2016-12-23 04:17] LABS: PROCALCITONIN 1.79 ng/mL (<0.5)
[2016-12-23 04:21] LABS: BAND NEUTROPHILS 3 %; IMMATURE GRANS ABSOLUTE (CALC) 0.31 10/3/uL (0.0-0.11); LYMPHOCYTES 13 %; LYMPHOCYTES ABSOLUTE (CALC) 1.34 10/3/uL (0.67-4.30); METAMYELOCYTES 3 %; MONOCYTES 3 %; MONOCYTES ABSOLUTE (CALC) 0.31 10/3/uL (0.21-1.20); NEUTROPHILS ABSOLUTE (CALC) 8.34 10/3/uL (2.02-8.40); PLATELET ESTIMATE ADQ (ADEQUATE); SEGMENTED NEUTROPHIL (0) 78 %; TOTAL NUCLEATED CELLS 100
[2016-12-23 04:27] LABS: BUN (BLOOD UREA NITROGEN) 102 MG/DL (6-23); CALCIUM, SERUM 9.3 MG/DL (8.5-10.4); CHLORIDE, SERUM 105 MMOL/L (96-112); CO2 (CARBON DIOXIDE) 28 MMOL/L (24-34); CREATININE 1.95 MG/DL (0.70-1.30); GFR AFRICAN AMERICAN 38 ML/MIN (>=60); GFR NON AFRICAN AMERICAN 33 ML/MIN (>=60); GLUCOSE, SERUM 190 MG/DL (60-99); POTASSIUM, SERUM 4.4 MMOL/L (3.5-5.3); SODIUM, SERUM 143 MMOL/L (135-148)
[2016-12-24 03:29] LABS: BE (BASE EXCESS) 2.5 MEQ/L (0 +/- 2.5); HCO3 (ACTUAL BICARBONATE) 27.3 MEQ/L (23-27); HEMOBLOGIN CONTENT 8.9 G/DL (14-18); INSTRUMENT SERIAL # 11843; METHEMOGLOBIN 0.3 % (0-3); MODE CMV; O2 CONTENT 12.3 VOL% (18-24); OPERATOR ID 23712; PCO2 (CO2 TENSION) 43 MMHG (35-45); PO2 (O2 TENSION) 108 MMHG (79-93); SAMPLE Arterial; TIDAL VOLUME 550 ML; pH 7.42 (7.37-7.43)
[2016-12-24 04:02] LABS: BASOPHILS 0.4 %; BASOPHILS ABSOLUTE 0.04 10/3/uL (0.0-0.16); EOSINOPHILS ABSOLUTE 0.31 10/3/uL (0.0-0.53); HEMATOCRIT 26.3 % (40.0-51.0); HEMOGLOBIN 8.3 g/dL (13.6-17.8); IMMATURE GRANULOCYTES 1.9 %; LYMPHOCYTES 6.9 %; LYMPHOCYTES ABSOLUTE 0.72 10/3/uL (0.67-4.30); MEAN CORPUS HGB CONC 31.6 g/dL (32.0-36.0); MEAN CORPUSCULAR HEMOGLOB 30.7 pg (26.0-34.0); MEAN PLATELET VOLUME 10.6 fL (9.2-13.0); MONOCYTES ABSOLUTE 0.62 10/3/uL (0.21-1.20); NEUTROPHILS 81.8 %; NEUTROPHILS ABSOLUTE 8.49 10/3/uL (2.02-8.40); NUCLEATED RED BLOOD CELLS 3.4 /100WBC (0-0); PLATELET COUNT 197 10/3/uL (150-400); RBC DISTRIBUTION WIDTH 16.7 % (12.0-16.0); WHITE BLOOD CELLS 10.4 10/3/uL (4.5-10.5)
[2016-12-24 04:04] LABS: MANUAL DIFF NO %; MEAN CORPUSCULAR VOLUME 97.4 fL (80-100)
[2016-12-24 04:31] LABS: ALBUMIN 2.5 G/DL (3.5-5.0); BUN (BLOOD UREA NITROGEN) 100 MG/DL (6-23); CALCIUM, SERUM 8.8 MG/DL (8.5-10.4); CHLORIDE, SERUM 110 MMOL/L (96-112); CO2 (CARBON DIOXIDE) 30 MMOL/L (24-34); CREATININE 1.46 MG/DL (0.70-1.30); GFR AFRICAN AMERICAN 55 ML/MIN (>=60); GFR NON AFRICAN AMERICAN 47 ML/MIN (>=60); GLUCOSE, SERUM 152 MG/DL (60-99); POTASSIUM, SERUM 4.4 MMOL/L (3.5-5.3); SGOT(AST) 305 U/L (5-40); SGPT(ALT) 367 U/L (5-65); SODIUM, SERUM 149 MMOL/L (135-148)
[2016-12-24 04:35] LABS: A/G RATIO 0.7 (0.7-1.9); ALKALINE PHOSPHATASE 128 U/L (45-117); DIGOXIN 1.7 NG/ML (0.8-2.0); GLOBULIN 3.5 G/DL (2.5-4.1); TOTAL BILIRUBIN 1.3 MG/DL (0-1.2)
== END 2016-12-25 13:50 | disposition expired | DRG 233 ==
LOC: CORLMH 10:59 → SSU1 10:59 → CORLMH 13:00 → SSU1 16:50 → CVICU 16:50 → SDC/OF 12-15 07:21 → CVICU 12-15 09:34
PROVIDERS: Internal Medicine Cardiovascular Disease; Internal Medicine Critical Care Medicine; Internal Medicine Pulmonary Disease; Thoracic Surgery (Cardiothoracic Vascular Surgery)
DX: I25.10 Atherosclerotic heart disease of native coronary artery without angina pectoris (principal); J95.821 Acute postprocedural respiratory failure; N17.0 Acute kidney failure with tubular necrosis; J15.6 Pneumonia due to other Gram-negative bacteria; I50.21 Acute systolic (congestive) heart failure; G93.49 Other encephalopathy; J90 Pleural effusion, not elsewhere classified; K56.7 Ileus, unspecified; J95.811 Postprocedural pneumothorax; I97.89 Other postprocedural complications and disorders of the circulatory system, not elsewhere classified; J98.11 Atelectasis; J44.9 Chronic obstructive pulmonary disease, unspecified; I48.2 Chronic atrial fibrillation; E87.70 Fluid overload, unspecified; D47.3 Essential (hemorrhagic) thrombocythemia; F17.210 Nicotine dependence, cigarettes, uncomplicated; Z79.01 Long term (current) use of anticoagulants; Z79.82 Long term (current) use of aspirin; Z79.899 Other long term (current) drug therapy; Z79.4 Long term (current) use of insulin; I11.0 Hypertensive heart disease with heart failure; I34.0 Nonrheumatic mitral (valve) insufficiency; I35.0 Nonrheumatic aortic (valve) stenosis; I36.1 Nonrheumatic tricuspid (valve) insufficiency; Z51.5 Encounter for palliative care; Z66 Do not resuscitate
CPT/HCPCS: 31720; 36415; 36600; 70450; 71010; 74000; 74020; 80048; 80053; 80069; 80162; 81001; 82140; 82330; 82533; 82803; 82805; 82947; 82962; 83036; 83550; 83605; 83735; 84100; 84132; 84134; 84145; 84295; 85014; 85018; 85025; 85049; 85347; 85610; 85730; 86022; 86850; 86900; 86901; 86920; 87040; 87070; 87077; 87186; 87205; 87641; 93005; 93308; 93312; 93320; 93325; 93458; 93880; 94002; 94003; 94640; 94660; 94770; 99152; A9270-GY; C1713; C1725; C1751; C1757; C1760; C1769; C1894; C9113; J0690; J0692; J1160; J1205; J1644; J1940; J2150; J2250; J2260; J2370; J2440; J2543; J2720; J2930; J3010; J3260; J3475; J3480; P9045; P9047; Q9967